=== PATIENT | female | born 1980 | race Caucasian/White ===

== ENCOUNTER → 2017-04-01 | Outpatient (CLI) | payer BC, MEDICAID ==
[~2017-04-01] MED LIST: ASCO100083 PO; CALC-464 PO; CYCL10TA9 PO; FERR325C PO; LPRM1B120; MULT-974 PO; MV-M1TAB20 PO; NAPR550T PO; OMEP20TA2 PO; OXYC1TAB87 PO; PRM25T PO; TRM50T PO; prenatal vit PO
--- NOTE | 2017-04-01 17:09 | Diagnostic Imaging Report ---
Transabdominal and transvaginal pelvic ultrasound. INDICATION: Abnormal uterine bleeding. FINDINGS: The uterus is 8.8 x 5.2 x 4.6 cm. The endometrial stripe is 0.4 cm in thickness. The left ovary is 3.6 x 2.5 x 2.7 cm. The right ovary is not seen, probably obscured by bowel gas. IMPRESSION: The right ovary is obscured. The uterus and left ovary appear unremarkable. Dictated by: Dictated on workstation # [id number]
== END ==
LOC: RAD 11:54
PROVIDERS: ATTEND Nurse Practitioner
DX: N93.8 Other specified abnormal uterine and vaginal bleeding (principal)
CPT/HCPCS: 76830; 76856

== ENCOUNTER 2017-05-27 05:38 | Outpatient (CLI) | payer BC ==
[~2017-05-27] VITALS: Ht 175.3 cm; Wt 111.1 kg
[2017-05-27] MEDS ORDERED: GABA-486 PO (13:18)
[2017-05-27] MEDS ORDERED: CHOL5000 PO (13:18)
[2017-05-27] MEDS ORDERED: CALC-823 PO (13:18)
[2017-05-27] MEDS ORDERED: TRAM50TA2 PO (13:18)
[2017-05-27] MEDS ORDERED: PREN-102 PO (13:18)
== END 2017-05-27 13:41 ==
LOC: PREOP 05:38
PROVIDERS: ATTEND Obstetrics & Gynecology
DX: Z01.818 Encounter for other preprocedural examination (principal); N92.0 Excessive and frequent menstruation with regular cycle; N93.8 Other specified abnormal uterine and vaginal bleeding; N80.0 Endometriosis of uterus

== ENCOUNTER 2017-06-02 09:12 | Day surgery (SDC) | payer BC ==
[~2017-06-02] VITALS: Ht 175.3 cm; Wt 111.1 kg
[~2017-06-02 09:12] MED LIST changes: +CALC-823 PO; +CHOL5000 PO; +GABA-486 PO; +PREN-102 PO; +TRAM50TA2 PO
[2017-06-02] MEDS: LACTATED RINGERS 1,000 ML IV PRN ×2 (09:35→12:45)
[2017-06-02 09:40] VITALS: BP 130/89
[2017-06-02] MEDS ORDERED: ONDANSETRON 4 MG/2 ML (SDV) Z0FRAN ONE (09:45)
[2017-06-02] MEDS ORDERED: FAMOTIDINE 20MG/2ML IV (PEPCID) ONE (09:45)
[2017-06-02] MEDS ORDERED: SCOPOLAMINE 1.5 MG (TRANSDERM-SCOP) PATCH ONE (09:45)
[2017-06-02] MEDS ORDERED: ceFAZolin 1,000 MG (ANCEF) VIAL ONE (09:46)
[2017-06-02] MEDS ORDERED: NS (IVPB) 50 ML ONE (09:46)
[2017-06-02] MEDS ORDERED: metroNIDAZOLE 500MG/100ML IVPB 100 ML ONE (09:46)
[2017-06-02 09:48] LABS: COLOR,URINE YELLOW; GLUCOSE, URINE (UA) NEGATIVE (NEGATIVE); KETONES,URINE NEGATIVE (NEGATIVE); LEUKOCYTE ESTERASE ,URINE 1+ (NEGATIVE); NITRITE,URINE NEGATIVE (NEGATIVE); PH,URINE 6 (5-9); PROTEIN,URINE 2+ (NEGATIVE); UROBILINOGEN,URINE 1 MG/DL (NORMAL)
[2017-06-02 09:48] LABS: BASOPHILS % (AUTO) 0 % (0-10); EOSINOPHILS # (AUTO) 0.1 10^3/uL (0.0-0.3); EOSINOPHILS % (AUTO) 2 % (0-10); HEMATOCRIT 38 % (35-52); HEMOGLOBIN 13.2 G/DL (11.5-16.0); LYMPHOCYTES # (AUTO) 1.5 X 10^3 (1.0-4.0); LYMPHOCYTES % (AUTO) 24 % (12-44); MEAN CORPUSCULAR HEMOGLOBIN 29 PG (25-34); MEAN CORPUSCULAR HGB CONC 34 G/DL (32-36); MEAN CORPUSCULAR VOLUME 84 FL (80-99); MONOCYTES # (AUTO) 0.5 X 10^3 (0.0-1.0); MONOCYTES % (AUTO) 8 % (0-12); NEUTROPHILS # (AUTO) 4.1 X 10^3 (1.8-7.8); NEUTROPHILS % (AUTO) 65 % (42-75); PLATELET COUNT 222 10^3/uL (130-400); RED BLOOD COUNT 4.59 10^6/uL (4.35-5.85); RED CELL DISTRIBUTION WIDTH 13.8 % (10.0-14.5); WHITE BLOOD COUNT 6.2 10^3/uL (4.3-11.0)
[2017-06-02] MEDS ORDERED: SCOPOLAMINE 1.5 MG (TRANSDERM-SCOP) PATCH TOP ONE (10:00)
[2017-06-02] MEDS ORDERED: ceFAZolin 1 GM/NS 50 ML IVPB IV ONE ×2 (10:00)
[2017-06-02 10:12] LABS: BACTERIA,URINE MODERATE /HPF; CLARITY,URINE SLIGHTLY CLOUDY
[2017-06-02 10:13] LABS: BILIRUBIN,URINE 1+ (NEGATIVE)
[2017-06-02] MEDS ORDERED: metroNIDAZOLE 500 MG/100 ML IVPB (PRE-MIX) IV ONE (10:15)
[2017-06-02] MEDS ORDERED: CATHETER FLUSH 10 ML SYR IV PRN (10:15)
[2017-06-02] MEDS ORDERED: BUP/EPI 0.5% 1:200,000 (SENSORCAINE) 30 ML VIAL ONE (10:46)
[2017-06-02] MEDS ORDERED: BUPIVACAINE 0.25% 30 ML (SENSORCAINE) VIAL ONE (10:46)
--- NOTE | 2017-06-02 10:46 | Progress Note-Pre Operative ---
Pre-Operative Progress Note H&P Reviewed The H&P was reviewed, patient examined and no changes noted. Date Seen by Provider: Jun 02, 2017 Time Seen by Provider: 10:50 Date H&P Reviewed: Jun 02, 2017 Time H&P Reviewed: 07:30 Pre-Operative Diagnosis: menorrhagia dysmenorrhea TARAN STORY DO Jun 02, 2017 10:46
[2017-06-02] MEDS ORDERED: FAMOTIDINE 20MG/2ML IV (PEPCID) IV ONE (11:00)
[2017-06-02] MEDS ORDERED: ceFAZolin INJECTION 1,000 MG in NS (IVPB) 50 ML IV ONE (11:00)
[2017-06-02] MEDS ORDERED: metroNIDAZOLE 500MG/100ML IVPB 100 ML IV ONE (11:00)
[2017-06-02] MEDS ORDERED: ONDANSETRON 4 MG/2 ML (SDV) Z0FRAN IV ONE (11:00)
[2017-06-02] MEDS ORDERED: DEXAMETHASONE 10 MG/ML (DECADRON) 1 ML VIAL ONE (11:02)
[2017-06-02] MEDS ORDERED: proPOfol 200 MG/20 ML (DIPRIVAN) VIAL IV ONE (11:03)
[2017-06-02] MEDS ORDERED: LIDOCAINE PF 2% 5 ML (XYLOCAINE) VIAL ONE (11:03)
[2017-06-02] MEDS ORDERED: fentaNYL INJECTION 250 MCG/5 ML AMP ONE (11:03)
[2017-06-02] MEDS ORDERED: ROCURONIUM 50 MG/5 ML (ZEMURON) VIAL IV ONE ×2 (11:03→12:37)
[2017-06-02] MEDS ORDERED: MIDAZOLAM 2 MG/2 ML (VERSED) VIAL ONE (11:03)
[2017-06-02] MEDS ORDERED: GLYCOPYRROLATE 0.2 MG/ML (ROBINUL) 2 ML VIAL ONE (13:39)
[2017-06-02] MEDS ORDERED: KETOROLAC 30 MG/ML VIAL ONE (13:39)
[2017-06-02] MEDS ORDERED: NEOSTIGMINE (BLOXIVERZ ) 1 MG/1ML 10 ML VIAL ONE (13:39)
[2017-06-02] MEDS ORDERED: SEVOFLURANE (ULTANE) 15 ML INHAL SOLN ONE (13:54)
[2017-06-02] MEDS ORDERED: fentaNYL INJECTION 100 MCG/2 ML AMP ONE (13:55)
[2017-06-02] MEDS: LACTATED RINGERS 1,000 ML IV SCH ×2 (14:00→17:38)
--- NOTE | 2017-06-02 14:12 | Operative Report ---
Operative Report Date of Procedure/Surgery Jun 02, 2017 Surgeon (s) TARAN STORY DO Sales And Catering Coordinator (s): CASSANDRA Shukla Post-Operative Diagnosis Same Procedure Performed Robotic assisted supracervical hysterectomy, bilateral salpingectomy, extensive lytsis of adhesions Description of Procedure Anesthesia Type: General Estimated blood loss (mL): minimal Specimen(s) collected/removed uterus bilateral tubes Description of the Procedure After informed consent was obtained, patient was taken into the operating room where general anesthetic was found to be adequate. She was prepped and draped in the usual sterile fashion in the dorsal lithotomy position. A Hurt catheter was placed. A speculum was placed in the vagina. The cervix was visualized and was prolapsed to the introitus. The anterior lip was grasped with a sharp toothed tenaculum. The uterus was sounded and depth was approximately 8 centimeters. I placed the Salena device. And then set the Salena to 8 cm and a 3.5 cm collar was advanced over the cervix. I inserted the Salena without difficulty, inflating the balloon and securing it around the fornix of the cervix. The collar was then secured with sutures at 12 o'clock. Attention was then turned to the patient's abdomen. A supraumbilical incision was made about 8 mm. A Veress needle was inserted and I had difficulty confirming intraabdominal placement, but was eventually able to confirm with a drop in pressure and the saline drop test. I then insufflated the abdomen to a maximum of 15 mmHg with warmed CO2 gas. I then placed an 8 mm trocar and then the Da Berry camera and intraperitoneal placement was confirmed. I then determined the procedure could be continued robotically. However, there was extensive filmy omental adhesions surrounding the umbilicus. This was obscuring the pelvis. The first robotic port was placed about 15 cm lateral to the right and left of the umbilical placement and slightly inferior. These are both 8 mm trocars. These were placed under direct visualization of the laparoscope. 0.25% Marcaine was injected prior to placement of all trocars. When all placements were confirmed, the patient was placed in steep Trendelenburg allowing adequate visualization and the robot was brought in for docking. The docking was accomplished without difficulty. A survey of the pelvis confirmed the above mentioned findings. I now took down the omental adhesions. It took over 30 minutes to take these down before I could proceed with the hysterectomy. However, they were filmy and easily taken down bluntly and with cautery. There were adhesions in the left pelvis overlying the infundibulopelvic ligament that were taken down prior to starting the hysterectomy. The omentum was also adherent to the tubes and these had to be taken down in blunt and sharp fashion with cautery. The left tube was adherent to the anterior abdominal wall and I took this down in blunt and sharp fashion. I was able to visualize the round ligaments bilaterally and grasped them and cauterized with bipolar cautery and then cut with my cecil. At this point, I then did bilateral salpingectomy. I cut along the mesosalpinx with the monopolar cecil and then dissected up to the cornu bilaterally. I then moved to the uteroovarian ligaments. I sealed the vessel and transected bilaterally using the bipolar cautery and then cut with the monopolar cecil. I then moved my dissection to the posterior leaves of the broad ligament. I dissected the posterior leaves of the broad ligament off the uterine arteries skeletonizing them bilaterally. I then took a second clamp with the bipolar cautery and with the cecil, transected the vessels away from the lateral aspect to the cervical stroma. I dissected the anterior peritoneum off the lower uterine segment. I continually pushed the bladder back and I took excessively great care and I was eventually able to dissect the vesicouterine peritoneum off the lower uterine segment. I then dissected in a V fashion towards the midline between the uterosacral ligaments. This allowed me to skeletonize the uterine vessels bilaterally. The balloon on the SALENA was insufflated. This allowed me to see the SALENA circumferentially. I then performed a colpotomy anteriorly and then amputate with cervix away from the vaginal fornix. I then continued the colpotomy circumferentially. Once this was performed, the assistant engineer removed the uterus through the vagina. A sponge was left in the vagina to maintain pneumoperitoneum. I then began closure of the vaginal cuff. The uterus was left in the vagina to maintain pneumoperitoneum. I closed the apices of the vaginal cuff with 2-0 Vicryl V lock sutures with a colposuspension through the uterosacral ligaments. This suspended the apices of the vaginal cuff. I extended this to the midline from both sides and overlapped the V lock sutures in the midline. Excellent closure is noted and hemostasis is achieved. The fascial incision at the umbilicus with 0-Vicryl in figure of eight fashion. The skin incisions were now closed with 4-0 Monocryl in subcuticular fashion. Bandages placed. Following the case, instrument counts were correct. The patient was repositioned in the supine position and awakened from general anesthesia without difficulty. She was taken to recovery in stable condition Findings of the Procedure Extensive adhesions in the anterior culdesac. The left tube was plastered to the left anterior abdomen. There was a large area of omental adhesions in the periumbilical region obscuring the visualization of the pelvis. There was also advancement of the bladder and vesicouterine peritoneum up over the lower uterine segment about assisted up the uterus. Allergies and Home Medications Allergies Coded Allergies: penicillin G (Verified Allergy, Unknown, Can take Cephalosporins, 06/02/17) Per Dr. Story patient can take Cephalosporins Home Medications Calcium Carbonate 500 Mg Tablet, 1,500 MG PO TID, (Reported) Cholecalciferol (Vitamin D3) 5,000 Unit Capsule, 5,000 UNIT PO DAILY, (Reported) Docusate Sodium 100 Mg Capsule, 100 MG PO BID PRN for CONSTIPATION-1ST LINE, #60 Prescribed by: TARAN STORY on 06/03/17 0945 Gabapentin 100 Mg Capsule, 100 MG PO DAILY, (Reported) Hydrocodone Bit/Acetaminophen 1 Ea Tablet, 1-2 EA PO Q6H PRN for PAIN-MODERATE TO SEVERE, #60 Prescribed by: TARAN STORY on 06/03/17 0945 Vits #93/Iron Fum/FA 1 Each Tablet, 1 EACH PO DAILY, (Reported) Simethicone 80 Mg Tab.chew, 40 MG PO TID PRN for INDIGESTION, #60 Prescribed by: TARAN STORY on 06/03/17 0945 Tramadol HCl 50 Mg Tablet, 50 MG PO DAILY, (Reported) TARAN STORY DO Jun 02, 2017 14:12
[2017-06-02] MEDS ORDERED: SIMETHICONE 80 MG (MYLICON) CHEW PO PRN (14:15)
[2017-06-02] MEDS ORDERED: DOCUSATE SODIUM 100 MG (COLACE) CAP PO PRN (14:15)
[2017-06-02] MEDS ORDERED: CHLORASEPTIC LOZENGE MM PRN (14:15)
[2017-06-02] MEDS ORDERED: ONDANSETRON 4 MG/2 ML (SDV) Z0FRAN IV PRN (14:15)
[2017-06-02] MEDS ORDERED: ANTACID SUSP 30 ML UDC (MYLANTA) PO PRN (14:15)
[2017-06-02] MEDS ORDERED: PROMETHAZINE INJ 25 MG/ML (PHENERGAN) AMP IVP PRN (14:30)
[2017-06-02] MEDS ORDERED: HYDROmorphone (DILAUDID) 2 MG/ML VIAL IVP PRN (14:30)
[2017-06-02] MEDS ORDERED: ONDANSETRON 4 MG/2 ML (SDV) Z0FRAN IVP PRN (14:30)
[2017-06-02] MEDS: morphine INJ 10 MG/ML 1ML (SYR OR VIAL) IVP PRN ×2 (14:36→14:41)
[2017-06-02 15:41] VITALS: BP 121/71
[2017-06-02 16:00] VITALS: BP 120/70
[2017-06-02] MEDS: HYDROmorphone (DILAUDID) 2 MG/ML VIAL IVP PRN ×2 (16:03→21:16)
[2017-06-02 16:30] VITALS: BP 115/67
[2017-06-02] MEDS: HYDROcodone/APAP 7.5 MG/325 MG (LORTAB, LORCET PLUS) TABLET PO PRN (18:01)
[2017-06-02 18:40] VITALS: BP 125/69
[2017-06-02] MEDS: KETOROLAC 30 MG/ML VIAL IV PRN (20:37)
[2017-06-02 20:39] VITALS: BP 123/77
[2017-06-03 00:05] VITALS: BP 114/71
[2017-06-03] MEDS: HYDROcodone/APAP 7.5 MG/325 MG (LORTAB, LORCET PLUS) TABLET PO PRN ×2 (00:06→08:22)
[2017-06-03] MEDS ORDERED: KETOROLAC 30 MG/ML VIAL ONE (01:55)
[2017-06-03] MEDS: KETOROLAC 30 MG/ML VIAL IV PRN (02:03)
[2017-06-03] MEDS: LACTATED RINGERS 1,000 ML IV SCH (02:03)
[2017-06-03 04:10] VITALS: BP 113/76
[2017-06-03] MEDS ORDERED: IBUPROFEN 600 MG (MOTRIN) TAB PO PRN (06:45)
[2017-06-03 07:59] VITALS: BP 102/69
--- NOTE | 2017-06-03 08:40 | Anesthesia-General Post-Op ---
General Patient Condition Mental Status/LOC: Same as Preop Cardiovascular: Satisfactory Nausea/Vomiting: Absent Respiratory: Satisfactory Pain: Controlled Complications: Absent Post Op Complications Complications None Follow Up Care/Instructions Patient Instructions None needed. Anesthesia/Patient Condition Patient Condition Patient is doing well, no complaints, stable vital signs, no apparent adverse anesthesia problems. No complications reported per nursing. D/C home per [facility] Criteria: Yes JOLANTA DOLL CRNA Jun 03, 2017 08:40
[2017-06-03] MEDS ORDERED: HYDR-34 PO (09:45)
[2017-06-03] MEDS ORDERED: DOCU100C37 PO (09:45)
[2017-06-03] MEDS ORDERED: SIME80TA16 PO (09:45)
--- NOTE | 2017-06-03 09:49 | Discharge Inst-Women's Service ---
Discharge Inst-Women's Serv Depart Medication/Instructions New, Converted or Re-Newed RX: RX on Chart Final Diagnosis menorrhagia/dysfunctional uterine bleeding adenomyosis enteropelvic adhesions Consults/Follow Up Additional Follow Up: Yes (1 week with Lakhwinder for incision check and 10-12 weeks for pelvic exam.) Activity Activity: Activity as Tolerated Driving Instructions: No Driving for 1 Week NO SMOKING: NO SMOKING Nothing Inside Vagina: No Douching, No [place] (for 10-12 weeks (until released)), No Tampons Diet Discharge Diet: No Restrictions Symptoms to Report to DrNaseem: Pain Increased, Fever Over 101 Degrees F, Vaginal Bleeding Increase, Cramps in Feet or Legs, Vaginal Discharge Foul For Any Problems or Questions: Contact Your Physician Skin/Wound Care Infection Signs and Symptoms: Increased Redness, Foul Odor of Wound, Increased Drainage, Skin Itchy or Has a Rash, Increased Swelling, Temperature Above 101 F Operative Area Clean and Dry: Keep Incision Clean/Dry Stitches/Óscar/Dermabond: Dermabond Bathing Instructions: TARAN Manuel DO Jun 03, 2017 09:49
--- OUTSIDE RECORDS SUMMARY | 2017-06-04 13:41 | XMS REPORT | Clinical Summary ---
Author Author [facility] Organization [facility] Address Unknown Phone Unavailable Care Team Providers Care Animal Care Attendant Name Role Phone Ritchie Gay PCP Eris Miller MD Unavailable Unavailable Anjana Stern RN Unavailable Unavailable Source Comments Some departments are not documenting in the electronic medical record. If you do not see the information that you expected, contact Release of Information in the Health Information Management department at [phone] for further assistance in locating additional records.[facility] Allergies Active Allergy Reactions Severity Noted Date Comments Penicillins HIVES 01/06/2013 Happened as a child Current Medications Prescription Sig. Disp. Refills Start End Date Status Date oxyCODone (ROXICODONE) 1 Take 5-15 mL by mouth 500 mL 0 03/17/20 Active mg/mL oral solution every 4 hours as needed 13 Earliest Fill Date: 03/17/[address](+) Take 1 Cap by mouth 90 Cap 3 07/01/19 Active (PRILOSEC) 40 mg daily. 14 capsuleIndications: Reflux promethazine (PHENERGAN) Take 25 mg by mouth every Active 25 mg tablet 6 hours as needed. Active Problems Problem Noted Date Unspecified protein-calorie malnutrition (HCC) 12/15/2013 S/P gastric bypass 03/21/2013 Morbid obesity (HCC) 01/12/2013 Social History Tobacco Use Types Packs/Day Years Used Date Never Smoker Smokeless Tobacco: Never Used Alcohol Use Drinks/Week oz/Week Comments No Sex Assigned at Date Recorded Not on file Last Filed Vital Signs Vital Sign Reading Time Taken Blood Pressure 122/83 11/17/2013 8:16 AM CDT Pulse 86 11/17/2013 8:16 AM CDT Temperature 36.1 C (97 F) 11/17/2013 8:16 AM CDT Respiratory Rate 16 11/17/2013 8:16 AM CDT Oxygen Saturation 96% 03/17/2013 8:08 AM MATERIAL HAULER Inhaled Oxygen - - Concentration Weight 111.3 kg (245 lb 6.4 oz) 11/17/2013 8:16 AM CDT Height 175.3 cm (5' 9") 11/17/2013 8:16 AM CDT Body Mass Index 36.24 11/17/2013 8:16 AM CDT Plan of Treatment Health Maintenance Due Date Last Done Comments PHYSICAL (COMPREHENSIVE) 11/01/1986 EXAM PERTUSSIS VACCINE 11/01/1990 TETANUS VACCINE 11/01/1996 CERVICAL CANCER SCREENING 11/01/2009 INFLUENZA VACCINE 11/18/2016 Results Not on filefrom Last 3 Months
--- OUTSIDE RECORDS SUMMARY | 2017-06-04 13:42 | XMS REPORT | Continuity of Care Document ---
Author Author [facility] Address Unknown Phone Unavailable Allergies Active Description Code Type Severity Reaction Onset Reported/Identified Relationship to Patient Clinical Status Yes Penicillins Drug Allergy 08/15/2011 Yes Penicillins Drug Allergy N/A N/A 08/15/2011 Yes amitriptyline 25 mg tablet Drug Allergy N/A N/A 10/14/2012 Medications There is no data. Problems Date Dx Coded Attending Type Code Diagnosis Diagnosed By 08/15/2011 HARMONY PEDERSON DO 277.7 DYSMETABOLIC SYNDROME X 08/15/2011 HARMONY PEDERSON DO 278.00 OBESITY UNSPECIFIED 08/15/2011 HARMONY PEDERSON DO 724.3 SCIATICA 08/15/2011 HARMONY PEDERSON DO V70.0 ROUTINE GENERAL MEDICAL EXAMINATION AT A HEALTH CARE FACILITY 08/15/2011 277.7 DYSMETABOLIC SYNDROME X 08/15/2011 278.00 OBESITY UNSPECIFIED 08/15/2011 724.3 SCIATICA 08/15/2011 V70.0 ROUTINE GENERAL MEDICAL EXAMINATION AT A HEALTH CARE FACILITY 08/15/2011 277.7 DYSMETABOLIC SYNDROME X 08/15/2011 278.00 OBESITY UNSPECIFIED 08/15/2011 724.3 SCIATICA 08/15/2011 V70.0 ROUTINE GENERAL MEDICAL EXAMINATION AT A HEALTH CARE FACILITY 08/15/2011 277.7 DYSMETABOLIC SYNDROME X 08/15/2011 278.00 OBESITY UNSPECIFIED 08/15/2011 724.3 SCIATICA 08/15/2011 V70.0 ROUTINE GENERAL MEDICAL EXAMINATION AT A HEALTH CARE FACILITY 08/15/2011 277.7 DYSMETABOLIC SYNDROME X 08/15/2011 278.00 OBESITY UNSPECIFIED 08/15/2011 724.3 SCIATICA 08/15/2011 V70.0 ROUTINE GENERAL MEDICAL EXAMINATION AT A HEALTH CARE FACILITY 08/15/2011 HARMONY PEDERSON DO 277.7 DYSMETABOLIC SYNDROME X 08/15/2011 HARMONY PEDERSON DO 278.00 OBESITY UNSPECIFIED 08/15/2011 PEDERSON DO, HARMONY K 724.3 SCIATICA 08/15/2011 PEDERSON DO, HARMONY K V70.0 ROUTINE GENERAL MEDICAL EXAMINATION AT A HEALTH CARE FACILITY 08/15/2011 [facility], NARINDER A 277.7 DYSMETABOLIC SYNDROME X 08/15/2011 [facility], NAR[facility]ER A 278.00 OBESITY UNSPECIFIED 08/15/2011 [facility], NARINDER A 724.3 SCIATICA 08/15/2011 [facility], NARINDER A V70.0 ROUTINE GENERAL MEDICAL EXAMINATION AT A HEALTH CARE FACILITY 08/15/2011 PEDERSON DO, HARMONY K 277.7 DYSMETABOLIC SYNDROME X 08/15/2011 PEDERSON DO, HARMONY K 278.00 OBESITY UNSPECIFIED 08/15/2011 PEDERSON DO, HARMONY K 724.3 SCIATICA 08/15/2011 PEDERSON DO, HARMONY K V70.0 ROUTINE GENERAL MEDICAL EXAMINATION AT A HEALTH CARE FACILITY 08/15/2011 [facility], DENYS R 277.7 DYSMETABOLIC SYNDROME X 08/15/2011 [facility], DENYS R 278.00 OBESITY UNSPECIFIED 08/15/2011 [facility], DENYS R 724.3 SCIATICA 08/15/2011 [facility], DENYS R V70.0 ROUTINE GENERAL MEDICAL EXAMINATION AT A HEALTH CARE FACILITY 08/15/2011 [facility], DENYS R 277.7 DYSMETABOLIC SYNDROME X 08/15/2011 [facility], DENYS R 278.00 OBESITY UNSPECIFIED 08/15/2011 [facility], DENYS R 724.3 SCIATICA 08/15/2011 [facility], DENYS R V70.0 ROUTINE GENERAL MEDICAL EXAMINATION AT A HEALTH CARE FACILITY 08/15/2011 PEDERSON DO, HARMONY K 277.7 DYSMETABOLIC SYNDROME X 08/15/2011 PEDERSON DO, HARMONY K 278.00 OBESITY UNSPECIFIED 08/15/2011 PEDERSON DO, HARMONY K 724.3 SCIATICA 08/15/2011 PEDERSON DO, HARMONY K V70.0 ROUTINE GENERAL MEDICAL EXAMINATION AT A HEALTH CARE FACILITY 08/15/2011 PEDERSON DO, HARMONY K 277.7 DYSMETABOLIC SYNDROME X 08/15/2011 PEDERSON DO, HARMONY K 278.00 OBESITY UNSPECIFIED 08/15/2011 PEDERSON DO, HARMONY K 724.3 SCIATICA 08/15/2011 PEDERSON DO, HARMONY K V70.0 ROUTINE GENERAL MEDICAL EXAMINATION AT A HEALTH CARE FACILITY 08/15/2011 ROSIE MOYER MD 277.7 DYSMETABOLIC SYNDROME X 08/15/2011 ROSIE MOYER MD 278.00 OBESITY UNSPECIFIED 08/15/2011 ROSIE MOYER MD 724.3 SCIATICA 08/15/2011 ROSIE MOYER MD V70.0 ROUTINE GENERAL MEDICAL EXAMINATION AT A HEALTH CARE FACILITY 08/15/2011 ROSIE MOYER MD 277.7 DYSMETABOLIC SYNDROME X 08/15/2011 ROSIE MOYER MD 278.00 OBESITY UNSPECIFIED 08/15/2011 ROSIE MOYER MD 724.3 SCIATICA 08/15/2011 ROSIE MOYER MD V70.0 ROUTINE GENERAL MEDICAL EXAMINATION AT A HEALTH CARE FACILITY 08/15/2011 BG JAMA HARMONY K 277.7 DYSMETABOLIC SYNDROME X 08/15/2011 PEDERSON DO HARMONY K 278.00 OBESITY UNSPECIFIED 08/15/2011 [place] PEDERSON DOA K 724.3 SCIATICA 08/15/2011 PEDERSON DO HARMONY K V70.0 ROUTINE GENERAL MEDICAL EXAMINATION AT A HEALTH CARE FACILITY 08/15/2011 PEDERSON DO HARMONY K 277.7 DYSMETABOLIC SYNDROME X 08/15/2011 PEDERSON DO HARMONY K 278.00 OBESITY UNSPECIFIED 08/15/2011 PEDERSON DO HARMONY K 724.3 SCIATICA 08/15/2011 PEDERSON DO HARMONY K V70.0 ROUTINE GENERAL MEDICAL EXAMINATION AT A HEALTH CARE FACILITY 08/15/2011 BG JAMA HARMONY K 277.7 DYSMETABOLIC SYNDROME X 08/15/2011 PEDERSON DO HARMONY K 278.00 OBESITY UNSPECIFIED 08/15/2011 PEDERSON DO HARMONY K 724.3 SCIATICA 08/15/2011 PEDERSON DO HARMONY K V70.0 ROUTINE GENERAL MEDICAL EXAMINATION AT A HEALTH CARE FACILITY 09/09/2011 [place] PEDERSON DOA K 724.2 LUMBAGO 09/09/2011 [place] PEDERSON DOA K 783.1 ABNORMAL WEIGHT GAIN 09/09/2011 [place] PEDERSON DOA K V25.02 GENERAL COUNSELING ON INITIATION OF OTHER CONTRACEPTIVE MEASURES 09/09/2011 724.2 LUMBAGO 09/09/2011 783.1 ABNORMAL WEIGHT GAIN 09/09/2011 V25.02 GENERAL COUNSELING ON INITIATION OF OTHER CONTRACEPTIVE MEASURES 09/09/2011 724.2 LUMBAGO 09/09/2011 783.1 ABNORMAL WEIGHT GAIN 09/09/2011 V25.02 GENERAL COUNSELING ON INITIATION OF OTHER CONTRACEPTIVE MEASURES 09/09/2011 724.2 LUMBAGO 09/09/2011 783.1 ABNORMAL WEIGHT GAIN 09/09/2011 V25.02 GENERAL COUNSELING ON INITIATION OF OTHER CONTRACEPTIVE MEASURES 09/09/2011 724.2 LUMBAGO 09/09/2011 783.1 ABNORMAL WEIGHT GAIN 09/09/2011 V25.02 GENERAL COUNSELING ON INITIATION OF OTHER CONTRACEPTIVE MEASURES 09/09/2011 PEDERSON HARMONY JAMA K 724.2 LUMBAGO 09/09/2011 PEDERSON HARMONY JAMA 783.1 ABNORMAL WEIGHT GAIN 09/09/2011 HARMONY PEDERSON DO V25.02 GENERAL COUNSELING ON INITIATION OF OTHER CONTRACEPTIVE MEASURES [facility]/09[facility]83.1 ABNORMAL WEIGHT GAIN 09/09/2011 [facility] V25.02 GENERAL COUNSELING ON INITIATION OF OTHER CONTRACEPTIVE MEASURES 09/09/2011 PEDERSON HARMONY JAMA 724.2 LUMBAGO 09/09/2011 HARMONY PEDERSON DO 783.1 ABNORMAL WEIGHT GAIN 09/09/2011 HARMONY PEDERSON DO V25.02 GENERAL COUNSELING ON INITIATION OF OTHER CONTRACEPTIVE MEASURES 09/09/2011 [facility] LUMBAGO 09/09/2011 [facility], DENYS R 783.1 ABNORMAL WEIGHT GAIN 09/09/2011 [facility] V25.02 GENERAL COUNSELING ON INITIATION OF OTHER CONTRACEPTIVE MEASURES 09/09/2011 [facility], DENYS R 724.2 LUMBAGO 09/09/2011 [facility], DENYS R 783.1 ABNORMAL WEIGHT GAIN 09/09/2011 [facility] V[facility].02 GENERAL COUNSELING ON INITIATION OF OTHER CONTRACEPTIVE MEASURES 09/09/2011 HARMONY PEDERSON DO K 724.2 LUMBAGO 09/09/2011 HARMONY PEDERSON DO K 783.1 ABNORMAL WEIGHT GAIN 09/09/2011 HARMONY PEDERSON DO K V25.02 GENERAL COUNSELING ON INITIATION OF OTHER CONTRACEPTIVE MEASURES 09/09/2011 HARMONY PEDERSON DO 724.2 LUMBAGO 09/09/2011 HARMONY PEDERSON DO 783.1 ABNORMAL WEIGHT GAIN 09/09/2011 HARMONY PEDERSON DO V25.02 GENERAL COUNSELING ON INITIATION OF OTHER CONTRACEPTIVE MEASURES 09/09/2011 ROSIE MOYER MD 724.2 LUMBAGO 09/09/2011 ROSIE MOYER MD 783.1 ABNORMAL WEIGHT GAIN 09/09/2011 ROSIE MOYER MD V25.02 GENERAL COUNSELING ON INITIATION OF OTHER CONTRACEPTIVE MEASURES 09/09/2011 ROSIE MOYER MD 724.2 LUMBAGO 09/09/2011 ROSIE MOYER MD 783.1 ABNORMAL WEIGHT GAIN 09/09/2011 ROSIE MOYER MD V25.02 GENERAL COUNSELING ON INITIATION OF OTHER CONTRACEPTIVE MEASURES 09/09/2011 HARMONY PEDERSON DO 724.2 LUMBAGO 09/09/2011 HARMONY PEDERSON DO 783.1 ABNORMAL WEIGHT GAIN 09/09/2011 HARMONY PEDERSON DO V25.02 GENERAL COUNSELING ON INITIATION OF OTHER CONTRACEPTIVE MEASURES 09/09/2011 HARMONY PEDERSON DO 724.2 LUMBAGO 09/09/2011 HARMONY PEDERSON DO K 783.1 ABNORMAL WEIGHT GAIN 09/09/2011 HARMONY PEDERSON DO V25.02 GENERAL COUNSELING ON INITIATION OF OTHER CONTRACEPTIVE MEASURES 09/09/2011 HARMONY PEDERSON DO 724.2 LUMBAGO 09/09/2011 HARMONY PEDERSON DO 783.1 ABNORMAL WEIGHT GAIN 09/09/2011 HARMONY PEDERSON DO V25.02 GENERAL COUNSELING ON INITIATION OF OTHER CONTRACEPTIVE MEASURES 11/28/2011 HARMONY PEDERSON DO 112.1 Candidiasis Vaginal 11/28/2011 HARMONY PEDERSON DO K 698.0 Pruritus Ani 11/28/2011 112.1 Candidiasis Vaginal 11/28/2011 698.0 Pruritus Ani 11/28/2011 112.1 Candidiasis Vaginal 11/28/2011 698.0 Pruritus Ani 11/28/2011 112.1 Candidiasis Vaginal 11/28/2011 698.0 Pruritus Ani 11/28/2011 112.1 Candidiasis Vaginal 11/28/2011 698.0 Pruritus Ani 11/28/2011 HARMONY PEDERSON DO K 112.1 Candidiasis Vaginal 11/28/2011 PEDERSON DO, HARMONY K 698.0 Pruritus Ani 11/28/2011 [facility], NAR[facility]ER A 112.1 Candidiasis Vaginal 11/28/2011 [facility], NAR[facility] A 698.0 Pruritus Ani 11/28/2011 PEDERSON DO, HARMONY K 112.1 Candidiasis Vaginal 11/28/2011 PEDERSON DO, HARMONY K 698.0 Pruritus Ani 11/28/2011 [facility], DENYS R 112.1 Candidiasis Vaginal 11/28/2011 [facility] DENYS R 698.0 Pruritus Ani 11/28/2011 [facility], DENYS R 112.1 Candidiasis Vaginal 11/28/2011 [facility], DENYS R 698.0 Pruritus Ani 11/28/2011 PEDERSON DO, HARMONY K 112.1 Candidiasis Vaginal 11/28/2011 PEDERSON DO, HARMONY K 698.0 Pruritus Ani 11/28/2011 PEDERSON DO, HARMONY K 112.1 Candidiasis Vaginal 11/28/2011 PEDERSON DO, HARMONY K 698.0 Pruritus Ani 11/28/2011 ROSIE MOYER MD 112.1 Candidiasis Vaginal 11/28/2011 ROSIE MOYER MD 698.0 Pruritus Ani 11/28/2011 ROSEI MOYER MD 112.1 Candidiasis Vaginal 11/28/2011 ROSIE MOYER MD 698.0 Pruritus Ani 11/28/2011 PEDERSON DO, HARMONY K 112.1 Candidiasis Vaginal 11/28/2011 PEDERSON DO, HARMONY K 698.0 Pruritus Ani 11/28/2011 PEDERSON DO, HARMONY K 112.1 Candidiasis Vaginal 11/28/2011 PEDERSON DO, HARMONY K 698.0 Pruritus Ani 11/28/2011 PEDERSON DO, HARMONY K 112.1 Candidiasis Vaginal 11/28/2011 PEDERSON DO, HARMONY K 698.0 Pruritus Ani 03/09/2012 PEDERSON DO, HARMONY K 112.3 CANDIDIASIS OF SKIN AND NAILS 03/09/2012 112.3 CANDIDIASIS OF SKIN AND NAILS 03/09/2012 112.3 CANDIDIASIS OF SKIN AND NAILS 03/09/2012 112.3 CANDIDIASIS OF SKIN AND NAILS 03/09/2012 112.3 CANDIDIASIS OF SKIN AND NAILS 03/09/2012 PEDERSON DO HARMONY K 112.3 CANDIDIASIS OF [facility]IN [facility]S [facility]09[facility] 112.3 CANDIDIASIS OF SKIN AND NAILS 03/09/2012 PEDERSON DO HARMONY K 112.3 CANDIDIASIS OF SKIN AND NAILS 03/09/2012 [facility], DENYS R 112.3 CANDIDIASIS OF SKIN AND NAILS 03/09/2012 [facility], DENYS R 112.3 CANDIDIASIS OF SKIN AND NAILS 03/09/2012 PEDERSON DO HARMONY K 112.3 CANDIDIASIS OF SKIN AND NAILS 03/09/2012 PEDERSON DO HARMONY K 112.3 CANDIDIASIS OF SKIN AND NAILS 03/09/2012 ROSIE MOYER MD 112.3 CANDIDIASIS OF SKIN AND NAILS 03/09/2012 ROSIE MOYER MD 112.3 CANDIDIASIS OF SKIN AND NAILS 03/09/2012 PEDERSON DO HARMONY K 112.3 CANDIDIASIS OF SKIN AND NAILS 03/09/2012 PEDERSON DO HARMONY K 112.3 CANDIDIASIS OF SKIN AND NAILS 03/09/2012 PEDERSON DO HARMONY K 112.3 CANDIDIASIS OF SKIN AND NAILS 05/14/2012 PEDERSON DO HARMONY K 782.3 EDEMA 05/14/2012 782.3 EDEMA 05/14/2012 782.3 EDEMA 05/14/2012 782.3 EDEMA 05/14/2012 782.3 EDEMA 05/14/2012 PEDERSON DO, HARMONY K 782.3 EDEMA 05/14/2012 [facility], NARINDER Garcia 782.3 EDEMA 05/14/2012 PEDERSON DO, HARMONY K 782.3 EDEMA 05/14/2012 [facility], [facility] R 782.3 EDEMA 05/14/2012 [facility], [facility] R 782.3 EDEMA 05/14/2012 PEDERSON DO, HARMONY K 782.3 EDEMA 05/14/2012 PEDERSON DO, HARMONY K 782.3 EDEMA 05/14/2012 ROSIE MOYER MD 782.3 EDEMA 05/14/2012 ROSIE MOYER MD 782.3 EDEMA 05/14/2012 PEDERSON DO, HARMONY K 782.3 EDEMA 05/14/2012 PEDERSON DO, HARMONY K 782.3 EDEMA 06/08/2012 682.9 CELLULITIS AND ABSCESS OF UNSPECIFIED SITES 06/08/2012 682.9 CELLULITIS AND ABSCESS OF UNSPECIFIED SITES 06/08/2012 682.9 CELLULITIS AND ABSCESS OF UNSPECIFIED SITES 06/08/2012 682.9 CELLULITIS AND ABSCESS OF UNSPECIFIED SITES 06/08/2012 [place] PEDERSON DOA K 682.9 CELLULITIS AND ABSCESS OF UNSPECIFIED SITES 06/08/2012 [facility] 682.[facility] CELLULITIS AND ABSCESS OF UNSPECIFIED SITES 06/08/2012 PEDERSON [place] JAMAA K 682.9 CELLULITIS AND ABSCESS OF UNSPECIFIED SITES 06/08/2012 [facility], DENYS R 682.9 CELLULITIS AND ABSCESS OF UNSPECIFIED SITES 06/08/2012 [facility], DEN[facility] R 682.9 CELLULITIS AND ABSCESS OF UNSPECIFIED SITES 06/08/2012 [place] PEDERSON DOA K 682.9 CELLULITIS AND ABSCESS OF UNSPECIFIED SITES 06/08/2012 [place] PEDERSON DOA K 682.9 CELLULITIS AND ABSCESS OF UNSPECIFIED SITES 06/08/2012 ROSIE MOYER MD 682.9 CELLULITIS AND ABSCESS OF UNSPECIFIED SITES 06/08/2012 ROSIE MOYER MD 682.9 CELLULITIS AND ABSCESS OF UNSPECIFIED SITES 06/08/2012 [place] PEDERSON DOA K 682.9 CELLULITIS AND ABSCESS OF UNSPECIFIED SITES 06/08/2012 [place] PEDERSON DOA K 682.9 CELLULITIS AND ABSCESS OF UNSPECIFIED SITES 07/12/2012 461.9 SINUSITIS ACUTE 07/12/2012 461.9 Sinusitis Acute 07/12/2012 461.9 Sinusitis Acute 07/12/2012 461.9 Sinusitis Acute 07/12/2012 [place] PEDERSON DOA K 461.9 Sinusitis Acute 07/12/2012 [facility] Sinusitis Acute 07/12/2012 [place] PEDERSON DOA K 461.9 Sinusitis Acute 07/12/2012 [facility], [facility] R 461.9 Sinusitis Acute 07/12/2012 [facility], [facility] R 461.9 Sinusitis Acute 07/12/2012 [place] PEDERSON DOA K 461.9 Sinusitis Acute 07/12/2012 PEDERSON [place] JAMAA K 461.9 Sinusitis Acute 07/12/2012 ROSIE MOYER MD 461.9 Sinusitis Acute 07/12/2012 ROSIE MOYER MD 461.9 Sinusitis Acute 07/12/2012 PEDERSON HARMONY JAMA K 461.9 Sinusitis Acute 07/12/2012 BG JAMA, HARMONY K 461.9 Sinusitis Acute 08/02/2012 786.2 cough 08/02/2012 786.2 cough 08/02/2012 786.2 cough 08/02/2012 PEDERSON DO, HARMONY K 786.2 COUGH 08/02/2012 [facility], NARINDER A 786.2 COUGH 08/02/2012 PEDERSON DO, HARMONY K 786.2 COUGH 08/02/2012 [facility], DENYS R 786.2 COUGH 08/02/2012 [facility], DEN[facility] R 786.2 COUGH 08/02/2012 PEDERSON DO, HARMONY K 786.2 COUGH 08/02/2012 PEDERSON DO, HARMONY K 786.2 COUGH 08/02/2012 ROSIE MOYER MD 786.2 COUGH 08/02/2012 ROSIE MOYER MD 786.2 COUGH 08/02/2012 PEDERSON DO, HARMONY K 786.2 COUGH 08/02/2012 PEDERSON DO, HARMONY K 786.2 COUGH 10/14/2012 401.1 HYPERTENSION, BENIGN ESSENTIAL 10/14/2012 V05.3 HEP B (ADULT) DX 10/14/2012 V05.4 VARICELLA DX 10/14/2012 V06.1 TDAP DX 10/14/2012 V06.4 MMR DX 10/14/2012 PEDERSON DO, HARMONY K 401.1 HYPERTENSION, BENIGN ESSENTIAL 10/14/2012 PEDERSON DO, HARMONY K V05.3 HEP B (ADULT) DX 10/14/2012 PEDERSON DO, HARMONY K V05.4 VARICELLA DX 10/14/2012 PEDERSON DO, HARMONY K V06.1 TDAP DX 10/14/2012 PEDERSON DO, HARMONY K V06.4 MMR DX 10/14/2012 [facility] 401.1 HYPERTENSION, BENIGN ESSENTIAL 10/14/2012 [facility] V05.3 HEP B (ADULT) DX 10/14/2012 [facility] V05.4 VARICELLA DX 10/14/2012 [facility] V06.1 TDAP DX 10/14/2012 [facility] V06.4 MMR DX 10/14/2012 PEDERSON DO, HARMONY K 401.1 HYPERTENSION, BENIGN ESSENTIAL 10/14/2012 PEDERSON DO, HARMONY K V05.3 HEP B (ADULT) DX 10/14/2012 PEDERSON DO, HARMONY K V05.4 VARICELLA DX 10/14/2012 PEDERSON DO, HARMONY K V06.1 TDAP DX 10/14/2012 PEDERSON DO, HARMONY K V06.4 MMR DX 10/14/2012 [facility] DEN[facility] R 401.1 HYPERTENSION, BENIGN ESSENTIAL 10/14/2012 [facility] R V05.3 HEP B (ADULT) DX 10/14/2012 [facility] DENYS R V05.4 VARICELLA DX 10/14/2012 [facility] R V06.1 TDAP DX 10/14/2012 [facility] R V06.4 MMR DX 10/14/2012 [facility] DENYS R 401.1 HYPERTENSION, BENIGN ESSENTIAL 10/14/2012 [facility] DENYS R V05.3 HEP B (ADULT) DX 10/14/2012 [facility] DENYS R V05.4 VARICELLA DX 10/14/2012 [facility] R V06.1 TDAP DX 10/14/2012 [facility] R V06.4 MMR DX 10/14/2012 PEDERSON DO, HARMONY K 401.1 HYPERTENSION, BENIGN ESSENTIAL 10/14/2012 PEDERSON DO, HARMONY K V05.3 HEP B (ADULT) DX 10/14/2012 PEDERSON DO, HARMONY K V05.4 VARICELLA DX 10/14/2012 PEDERSON DO, HARMONY K V06.1 TDAP DX 10/14/2012 PEDERSON DO, HARMONY K V06.4 MMR DX 10/14/2012 PEDERSON DO, HARMONY K 401.1 HYPERTENSION, BENIGN ESSENTIAL 10/14/2012 PEDERSON DO, HARMONY K V05.3 HEP B (ADULT) DX 10/14/2012 PEDERSON DO, HARMONY K V05.4 VARICELLA DX 10/14/2012 PEDERSON DO, HARMONY K V06.1 TDAP DX 10/14/2012 PEDERSON DO, HARMONY K V06.4 MMR DX 10/14/2012 JOÃO ZHANG, ROSIE 401.1 HYPERTENSION, BENIGN ESSENTIAL 10/14/2012 ROSIE MOYER MD V05.3 HEP B (ADULT) DX 10/14/2012 ROSIE MOYER MD V05.4 VARICELLA DX 10/14/2012 ROSIE MOYER MD V06.1 TDAP DX 10/14/2012 JOÃO ZHANG, ROSIE V06.4 MMR DX 10/14/2012 JOÃO ZHANG, ROSIE 401.1 HYPERTENSION, BENIGN ESSENTIAL 10/14/2012 ROSIE MOYER MD V05.3 HEP B (ADULT) DX 10/14/2012 JOÃO ZHANG, ROSIE V05.4 VARICELLA DX 10/14/2012 JOÃO ZHANG, ROSIE V06.1 TDAP DX 10/14/2012 ROSIE MOYER MD V06.4 MMR DX 10/14/2012 PEDERSON DO, HARMONY K 401.1 HYPERTENSION, BENIGN ESSENTIAL 10/14/2012 PEDERSON DO, HARMONY K V05.3 HEP B (ADULT) DX 10/14/2012 PEDERSON DO, HARMONY K V05.4 VARICELLA DX 10/14/2012 PEDERSON DO, HARMONY K V06.1 TDAP DX 10/14/2012 PEDERSON DO, HARMONY K V06.4 MMR DX 10/14/2012 PEDERSON DO, HARMONY K 401.1 HYPERTENSION, BENIGN ESSENTIAL 10/14/2012 PEDERSON DO, HARMONY K V05.3 HEP B (ADULT) DX 10/14/2012 PEDERSON DO, HARMONY K V05.4 VARICELLA DX 10/14/2012 PEDERSON DO, HARMONY K V06.1 TDAP DX 10/14/2012 PEDERSON DO, HAROMNY K V06.4 MMR DX 11/01/2012 HARMONY PEDERSON DO K V58.69 LONG-TERM (CURRENT) USE OF OTHER MEDICATIONS 11/01/2012 [facility] LONG-TERM (CURRENT) USE OF OTHER MEDICATIONS 11/01/2012 HARMONY PEDERSON DO V58.69 LONG-TERM (CURRENT) USE OF OTHER MEDICATIONS 11/01/2012 [facility] LONG-TERM (CURRENT) USE OF OTHER MEDICATIONS 11/01/2012 [facility] LONG-TERM (CURRENT) USE OF OTHER MEDICATIONS 11/01/2012 HARMONY PEDERSON DO V58.69 LONG-TERM (CURRENT) USE OF OTHER MEDICATIONS 11/01/2012 HARMONY PEDERSON DO V58.69 LONG-TERM (CURRENT) USE OF OTHER MEDICATIONS 11/01/2012 ROSIE MOYER MD V58.69 LONG-TERM (CURRENT) USE OF OTHER MEDICATIONS 11/01/2012 ROSIE MOYER MD V58.69 LONG-TERM (CURRENT) USE OF OTHER MEDICATIONS 11/01/2012 HARMONY PEDERSON DO V58.69 LONG-TERM (CURRENT) USE OF OTHER MEDICATIONS 11/01/2012 HARMONY PEDERSON DO V58.69 LONG-TERM (CURRENT) USE OF OTHER MEDICATIONS 01/27/2013 HARMONY PEDERSON DO V04.81 FLU SHOT 01/27/2013 [facility] Garcia V04.81 FLU SHOT 01/27/2013 HARMONY PEDERSON DO V04.81 FLU SHOT 01/27/2013 [facility], [facility] R V04.81 FLU SHOT 01/27/2013 [facility] V04.81 FLU SHOT 01/27/2013 HARMONY PEDERSON DO V04.81 FLU SHOT 01/27/2013 HARMONY PEDERSON DO V04.81 FLU SHOT 01/27/2013 ROSIE MOYER MD V04.81 FLU SHOT 01/27/2013 ROSIE MOYER MD V04.81 FLU SHOT 01/27/2013 HARMONY PEDERSON DO V04.81 FLU SHOT 01/27/2013 HARMONY PEDERSON DO V04.81 FLU SHOT 05/09/2013 [facility] Garcia 309.28 AD ADJ D/O W ANX DEP MOOD 05/09/2013 HARMONY PEDERSON DO 309.28 AD ADJ D/O W ANX DEP MOOD 05/09/2013 [facility], [facility] R 309.28 AD ADJ D/O W ANX DEP MOOD 05/09/2013 [facility], [facility] R 309.28 AD ADJ D/O W ANX DEP MOOD 05/09/2013 HARMONY PEDERSON DO 309.28 AD ADJ D/O W ANX DEP MOOD 05/09/2013 HARMONY PEDERSON DO 309.28 AD ADJ D/O W ANX DEP MOOD 05/09/2013 ROSIE MOYER MD 309.28 AD ADJ D/O W ANX DEP MOOD 05/09/2013 ROSIE MOYER MD 309.28 AD ADJ D/O W ANX DEP MOOD 05/09/2013 HARMONY PEDERSON DO 309.28 AD ADJ D/O W ANX DEP MOOD 05/09/2013 HARMONY PEDERSON DO 309.28 AD ADJ D/O W ANX DEP MOOD 05/30/2013 PEDERSON DO, HARMONY K 263.9 UNSPECIFIED PROTEIN-CALORIE MALNUTRITION 05/30/2013 [facility], DENYS R 263.9 UNSPECIFIED PROTEIN-CALORIE MALNUTRITION 05/30/2013 [facility], DENYS R 263.9 UNSPECIFIED PROTEIN-CALORIE MALNUTRITION 05/30/2013 HARMONY PEDERSON DO K 263.9 UNSPECIFIED PROTEIN-CALORIE MALNUTRITION 05/30/2013 HARMONY PEDERSON DO 263.9 UNSPECIFIED PROTEIN-CALORIE MALNUTRITION 05/30/2013 ROSIE MOYER MD 263.9 UNSPECIFIED PROTEIN-CALORIE MALNUTRITION 05/30/2013 ROSIE MOYER MD 263.9 UNSPECIFIED PROTEIN-CALORIE MALNUTRITION 05/30/2013 PEDERSON [place] JAMAA K 263.9 UNSPECIFIED PROTEIN-CALORIE MALNUTRITION 05/30/2013 PEDERSON [place] JAMAA K 263.9 UNSPECIFIED PROTEIN-CALORIE MALNUTRITION 09/14/2013 [facility], DENYS Islas V74.1 TB SCREENING 09/14/2013 HARMONY PEDERSON DO V74.1 TB SCREENING 09/14/2013 HARMONY PEDERSON DO V74.1 TB SCREENING 09/14/2013 ROSIE MOYER MD V74.1 TB SCREENING 09/14/2013 ROSIE MOYER MD V74.1 TB SCREENING 09/14/2013 PEDERSON [place] JAMAA K V74.1 TB SCREENING 09/14/2013 [place] PEDERSON DOA K V74.1 TB SCREENING 03/07/2014 [place] PEDERSON DOA K V03.89 MENINGOCOCCAL DX 03/07/2014 PEDERSON DO HARMONY K V05.3 HEP A (ADULT) DX 03/07/2014 [place] PED[place] DOA K V05.4 VARICELLA DX 03/07/2014 [place] PEDERSON DOA K V03.89 MENINGOCOCCAL DX 03/07/2014 PEDERSON DO HARMONY K V05.3 HEP A (ADULT) DX 03/07/2014 PEDERSON , HARMONY K V05.4 VARICELLA DX 06/30/2014 PEDERSON [place] JAMAA K V45.3 POSTSURGICAL INTESTINAL BYPASS OR ANASTOMOSIS STATUS Procedures Code [place] [address] OXIMETRY 08/02/2012 00207 PSYCH DIAGNOSTIC EVALUATION 05/24/2013 36010 ROUTINE VENIPUNCTURE 05/30/2013 18233 CBC 05/30/2013 1537327 GFR CALC (RESULT ONLY) 05/30/2013 21062 CMP 05/30/2013 26947 LIPID PANEL 05/30/2013 97126 LIVER PANEL (LFT) 05/30/2013 95548 IRON SERUM 05/30/2013 11050 IRON BNDNG CAP 05/30/2013 45282 PREALBUMIN 05/30/2013 48266 A1C (RML) 05/30/2013 18420 VIT B 12 05/30/2013 26393 FOLATE 05/30/2013 31599 TSH 05/30/2013 14053 VITAMIN D 25-HYDROXY (D2,D3 , TOTAL) 05/30/2013 43289 FERRITIN 05/30/2013 21583 T4 FREE 05/31/2013 [facility] IRON GROUP (Iron,TIBC, Ferritin) 06/01/2013 44094 PSYTX PT&/FAMILY 45 MINUTES 06/23/2013 84505 TB TEST INTRADERMAL 09/14/2013 12929 A1C (IN-HOUSE) 10/14/2013 81440 ROUTINE VENIPUNCTURE 10/14/2013 54394 LIPID PANEL 10/14/2013 06155 LIVER PANEL (LFT) 10/14/2013 58432 MAGNESIUM 10/14/2013 83742 T4 FREE 10/14/2013 18129 TSH 10/14/2013 86464 VITAMIN D 25-HYDROXY (D2,D3 , TOTAL) 10/14/2013 81205 VIT B 12 10/14/2013 54570 ZINC 10/17/2013 12138 COPPER 10/19/2013 33511 ROUTINE VENIPUNCTURE 11/14/2013 90834 CMP 11/14/2013 65617 FOLATE 11/14/2013 86696 PREALBUMIN 11/14/2013 04449 VITAMIN A 11/14/2013 83634 CBC 11/14/2013 [facility] IRON GROUP (Iron,TIBC, Ferritin) 11/14/2013 Results There is no data. Encounters ACCT No. Visit Date/Time Discharge Status Pt. Type Provider Facility Loc./Unit Complaint [id number] 06/30/2014 10:31:00 06/30/2014 23:59:59 CLS Outpatient HARMONY PEDERSON DO [id number] 03/07/2014 17:32:00 03/07/2014 23:59:59 CLS Outpatient HARMONY PEDERSON DO [id number] 12/15/2013 00:00:00 12/15/2013 23:59:59 CLS Outpatient JOÃO ZHANG, ROSIE [id number] 11/28/2013 13:43:00 11/28/2013 23:59:59 CLS Outpatient ROSIE MOYER MD [id number] 11/14/2013 09:02:00 11/14/2013 23:59:59 CLS Outpatient HARMONY PEDERSON DO [id number] 10/14/2013 09:39:00 10/14/2013 23:59:59 CLS Outpatient HARMONY PEDERSON DO [id number] 09/14/2013 18:43:00 09/14/2013 23:59:59 [facility] Out[facility] DENYS Islas [id number] 06/23/2013 08:00:00 06/23/2013 23:59:59 CLS Out[facility] [place]las [id number] 05/30/2013 13:01:00 05/30/2013 23:59:59 CLS Outpatient HARMONY PEDERSON DO [id number] 05/09/2013 12:55:00 05/09/2013 23:59:59 CLS Outpatient [facility] [id number] 01/27/2013 17:32:00 01/27/2013 23:59:59 CLS Outpatient HARMONY PEDERSON DO [id number] 07/12/2012 13:54:00 07/12/2012 23:59:59 CLS Outpatient [id number] 05/14/2012 16:47:00 05/14/2012 23:59:59 [place] [id number] 11/28/2011 10:31:00 11/28/2011 23:59:59 CLS Outpatient HARMONY PEDERSON DO [id number] 10/14/2012 14:22:00 Document Registration [id number] 08/16/2012 13:22:00 Document Registration [id number] 08/02/2012 14:56:00 Document Registration
== END 2017-06-03 12:15 | disposition home or self-care (01) ==
LOC: SDC 09:12 → WS 15:03 → SDC 06-03 12:15
PROVIDERS: ATTEND Obstetrics & Gynecology
DX: N92.0 Excessive and frequent menstruation with regular cycle (principal); N93.8 Other specified abnormal uterine and vaginal bleeding; N80.0 Endometriosis of uterus; N83.8 Other noninflammatory disorders of ovary, fallopian tube and broad ligament; G57.92 Unspecified mononeuropathy of left lower limb; E66.9 Obesity, unspecified; Z68.36 Body mass index [BMI] 36.0-36.9, adult; Z79.899 Other long term (current) drug therapy
CPT/HCPCS: 36415; 81000; 84703; 85025; 86850; 86900; 86901; 87081; 87088; 87186; 88307; 94664

== ENCOUNTER → 2018-02-05 | Outpatient (CLI) | payer BC ==
[~2018-02-05] MED LIST changes: +DOCU100C37 PO; +HYDR-34 PO; +SIME80TA16 PO
--- NOTE | 2018-02-05 15:32 | Diagnostic Imaging Report ---
PROCEDURE: MRI lumbar spine. TECHNIQUE: Multiplanar, multisequence MRI of the lumbar spine was performed without contrast. INDICATION: Chronic low back pain. COMPARISON: No prior studies are available for comparison. FINDINGS: Curvature of the lumbar spine is normal. There is minimal retrolisthesis of L3 on L4. Vertebral body heights are maintained. No acute compression fracture or geographic marrow lesion is seen. There is some generalized degenerative disc disease with disc space narrowing and desiccation. The conus is unremarkable at the T12-L1 level. T12-L1: Central canal is widely patent. The neural foramina are patent. Mild degenerative facet changes are seen. L1-2: There are some facet degenerative changes but central canal is widely patent. The neural foramina are widely patent. L2-3: There is some ligamentous thickening and annular bulging. Central canal remains patent but there is narrowing of the lateral recesses bilaterally. Very mild neural foraminal narrowing is seen bilaterally. L3-4: There is a wide-based midline/right paramidline disc protrusion/osteophyte complex. This produces significant narrowing of the central canal. There is significant bilateral lateral recess stenosis. There is also moderate bilateral neural foraminal stenosis. Hypertrophic facet changes and ligamentous thickening is present as well resulting in trefoil configuration of the sac. L4-5: Bulky hypertrophic facet degenerative change is seen. There is ligamentous thickening as well as broad-based disc/osteophyte complex. This results in significant trefoil central canal stenosis. There is also bilateral lateral recess stenosis. There is significant left neural foraminal stenosis with mild right neural foraminal stenosis. L5-S1: Broad-based disc/osteophyte complex indents the ventral thecal sac and results in mild central canal narrowing. There is bilateral lateral recess narrowing, right greater. The neural foramina are patent. The paraspinous tissues are unremarkable. IMPRESSION: Multilevel lumbar spondylosis and facet arthropathy resulting in multilevel central canal, lateral recess and neural foraminal stenosis described level by level above. Central canal stenosis is greatest at L3-4 and L4-5 levels, as described. No acute compression fracture is seen. Dictated by: Dictated on workstation # [id number]
== END ==
LOC: RAD 13:55
PROVIDERS: ATTEND Pain Medicine Interventional Pain Medicine
DX: M48.07 Spinal stenosis, lumbosacral region (principal); M46.86 Other specified inflammatory spondylopathies, lumbar region; M99.73 Connective tissue and disc stenosis of intervertebral foramina of lumbar region; M25.78 Osteophyte, vertebrae; M24.28 Disorder of ligament, vertebrae; M51.16 Intervertebral disc disorders with radiculopathy, lumbar region; M47.25 Other spondylosis with radiculopathy, thoracolumbar region; M43.16 Spondylolisthesis, lumbar region
CPT/HCPCS: 72148

== ENCOUNTER 2018-06-14 05:39 | Outpatient (CLI) | payer BC ==
[~2018-06-14] VITALS: Ht 175.3 cm; Wt 106.6 kg
[2018-06-14] MEDS ORDERED: ASCO-262 PO (13:58)
[2018-06-14] MEDS ORDERED: CYAN100092 IJ (13:58)
[2018-06-14] MEDS ORDERED: FERR160T5 PO (13:58)
[2018-06-14] MEDS ORDERED: BIOT800T PO (13:58)
[2018-06-14] MEDS ORDERED: CHOL10003 PO (13:58)
== END 2018-06-14 14:09 ==
LOC: PREOP 05:39
PROVIDERS: ATTEND Orthopaedic Surgery Orthopaedic Surgery of the Spine
DX: Z01.818 Encounter for other preprocedural examination (principal)

== ENCOUNTER 2018-06-21 10:58 | Inpatient (IN) | payer BC ==
[~2018-06-21] VITALS: Ht 175.3 cm; Wt 103.2 kg
[~2018-06-21 10:58] MED LIST changes: +ASCO-262 PO; +BIOT800T PO; +CHOL10003 PO; +CYAN100092 IJ; +FERR160T5 PO
--- OUTSIDE RECORDS SUMMARY | 2018-06-21 11:03 | XMS REPORT | Clinical Summary ---
Author Author [facility] Organization [facility] Address Unknown Phone Unavailable Care Team Providers Care Soda Jerker Name Role Phone Ritchie Gay PCP Eris Miller MD Unavailable Unavailable Anjana Stern RN Unavailable Unavailable Source Comments Some departments are not documenting in the electronic medical record. If you do not see the information that you expected, contact Release of Information in the Health Information Management department at [phone] for further assistance in locating additional records.[facility] Allergies Comments Active Allergy Reactions Severity Noted Date Happened as a child Penicillins HIVES 01/06/2013 Medications End Date Status Medication Sig Dispensed Refills Start Date Active oxyCODone (ROXICODONE) 1 Take 5-15 mL 500 mL 0 mg/mL oral solution by mouth 3 every 4 hours as needed Earliest Fill Date: 03/17/[address](+) Take 1 Cap by 90 Cap 3 (PRILOSEC) 40 mg mouth daily. 4 capsuleIndications: Reflux Active promethazine (PHENERGAN) Take 25 mg by 0 25 mg tablet mouth every 6 hours as needed. Active Problems Problem Noted Date Unspecified protein-calorie malnutrition 12/15/2013 S/P gastric bypass 03/21/2013 Morbid obesity 01/12/2013 Social History Date Tobacco Use Types Packs/Day Years Used Never Smoker Smokeless Tobacco: Never Used Alcohol Use Drinks/Week oz/Week Comments No Sex Assigned at Date Recorded Not on file Industry Job Start Date Occupation Not on file Not on file Not on file Travel End Travel History Travel Start No recent travel history available. Last Filed Vital Signs Time Taken Vital Sign Reading 11/17/2013 8:16 AM CDT Blood Pressure 122/83 11/17/2013 8:16 AM CDT Pulse 86 11/17/2013 8:16 AM CDT Temperature 36.1 C (97 F) 11/17/2013 8:16 AM CDT Respiratory Rate 16 03/17/2013 8:08 AM BOTTOM SPRAYER Oxygen Saturation 96% - Inhaled Oxygen - Concentration 11/17/2013 8:16 AM CDT Weight 111.3 kg (245 lb 6.4 oz) 11/17/2013 8:16 AM CDT Height 175.3 cm (5' 9") 11/17/2013 8:16 AM CDT Body Mass Index 36.24 Plan of Treatment Health Maintenance Due Date Last Done Comments PHYSICAL (COMPREHENSIVE) 11/01/1986 EXAM HIV SCREENING 11/01/1994 DTAP/TDAP VACCINES ( - 11/01/1997 Tdap) CERVICAL CANCER SCREENING 11/01/2009 INFLUENZA VACCINE 11/18/2018 Results Not on filefrom Last 3 Months Insurance Payer Benefit Subscriber ID Type Phone Address Plan / Group BCBS [employer] xxxxxxxxxxxx PPO OUT OF STATE Advance Directives Patient has advance care planning documents, and code status on file. For more information, please contact: [facility] [address] [place] [address] Date Inactivated Comments Code Status Date Activated 03/17/2013 2:03 PM Full Code 03/15/2013 8:11 PM Provider has discussed Code Status Yes w/Patient or Family?
--- OUTSIDE RECORDS SUMMARY | 2018-06-21 11:04 | XMS REPORT | Continuity of Care Document ---
Author Author [facility] Address Unknown Phone Unavailable Allergies Active Description [...] EXAMINATION AT A HEALTH CARE FACILITY 08/15/2011 [facility], [facility] A 277.7 DYSMETABOLIC SYNDROME X 08/15/2011 [facility], [facility] A 278.00 OBESITY UNSPECIFIED 08/15/2011 [facility], [facility] A 724.3 SCIATICA 08/15/2011 [facility], [facility] A V70.0 ROUTINE GENERAL MEDICAL EXAMINATION AT A HEALTH CARE FACILITY 08/15/2011 PEDERSON DO, HARMONY K 277.7 DYSMETABOLIC SYNDROME X 08/15/2011 PEDERSON DO, HARMONY K 278.00 OBESITY UNSPECIFIED 08/15/2011 PEDERSON DO, HARMONY K 724.3 SCIATICA 08/15/2011 PEDERSON DO, HARMONY K V70.0 ROUTINE GENERAL MEDICAL EXAMINATION AT A HEALTH CARE FACILITY 08/15/2011 [facility], [place] R 277.7 DYSMETABOLIC SYNDROME X 08/15/2011 [facility], [place] R 278.00 OBESITY UNSPECIFIED 08/15/2011 [facility], [place] R 724.3 SCIATICA 08/15/2011 [facility], [place] R V70.0 ROUTINE GENERAL MEDICAL EXAMINATION AT A HEALTH CARE FACILITY 08/15/2011 [facility], [place] R 277.7 DYSMETABOLIC SYNDROME X 08/15/2011 [facility], [place] R 278.00 OBESITY UNSPECIFIED 08/15/2011 [facility], [place] R 724.3 SCIATICA 08/15/2011 [facility], [place] R V70.0 ROUTINE GENERAL MEDICAL EXAMINATION [...] ON INITIATION OF OTHER CONTRACEPTIVE MEASURES [facility]09[facility]2 LUMBAGO [facility]/09[facility] 783.1 ABNORMAL WEIGHT GAIN 09/09/[facility] V25.02 GENERAL COUNSELING ON INITIATION OF OTHER CONTRACEPTIVE MEASURES 09/09/2011 PEDERSON HARMONY JAMA 724.2 LUMBAGO 09/09/2011 HARMONY PEDERSON DO 783.1 ABNORMAL WEIGHT GAIN 09/09/2011 HARMONY PEDERSON DO V25.02 GENERAL COUNSELING ON INITIATION OF OTHER CONTRACEPTIVE MEASURES 09/09/2011 [facility] 724.2 LUMBAGO 09/09/2011 [facility], [place] R 783.1 ABNORMAL WEIGHT GAIN 09/09/2011 [facility] V25.02 GENERAL COUNSELING ON INITIATION OF OTHER CONTRACEPTIVE MEASURES 09/09/2011 [facility], [place] R 724.2 LUMBAGO 09/09/2011 [facility], [place] R 783.1 ABNORMAL WEIGHT GAIN 09/09/2011 [facility] V25.02 GENERAL COUNSELING ON INITIATION OF [...] INITIATION OF OTHER CONTRACEPTIVE MEASURES 11/28/2011 HARMONY PEEDRSON DO 112.1 Candidiasis Vaginal 11/28/2011 HARMONY PEDERSON [...] ROSIE MOYER MD 698.0 Pruritus Ani 11/28/2011 ROSIE MOYER MD 112.1 Candidiasis Vaginal 11/28/2011 ROSIE MOYER MD 698.0 Pruritus Ani 11/28/2011 PEDERSON DO, HARMONY K 112.1 Candidiasis Vaginal 11/28/2011 [facility] DO, HARMONY K 698.0 Pruritus Ani 11/28/2011 [...] 112.3 CANDIDIASIS OF SKIN AND NAILS 03/09/2012 [facility] 112.3 CANDIDIASIS OF SKIN AND NAILS 03/09/2012 PEDERSON DO HARMONY K 112.3 CANDIDIASIS OF SKIN AND NAILS 03/09/2012 [facility], DEN[place] R 112.3 CANDIDIASIS OF SKIN AND NAILS 03/09/2012 [facility], [place] R 112.3 CANDIDIASIS OF SKIN AND [...] PEDERSON DO, HARMONY K 782.3 EDEMA 05/14/2012 [facility], N[facility] Garcia 782.3 EDEMA 05/14/2012 PEDERSON DO, HARMONY K 782.3 EDEMA 05/14/2012 [facility], [place] R 782.3 EDEMA 05/14/2012 [facility], [place] R 782.3 EDEMA 05/14/2012 PEDERSON DO, [...] CELLULITIS AND ABSCESS OF UNSPECIFIED SITES 06/08/2012 [facility] 682.9 CELLULITIS AND ABSCESS OF UNSPECIFIED SITES 06/08/2012 PEDERSON [place] JAMAA K 682.9 CELLULITIS AND ABSCESS OF UNSPECIFIED SITES 06/08/2012 [facility], [place] R 682.9 CELLULITIS AND ABSCESS OF UNSPECIFIED SITES 06/08/2012 [facility], [place] R 682.9 CELLULITIS AND ABSCESS OF [...] DOA K 461.9 Sinusitis Acute 07/12/2012 [facility] Sinusitis Acute 07/12/2012 [place] PEDERSON DOA K 461.9 Sinusitis Acute 07/12/2012 [facility], [place] R 461.9 Sinusitis Acute 07/12/2012 [facility], [place] R 461.9 Sinusitis Acute 07/12/2012 [place] [...] PEDERSON DO, HARMONY K 786.2 COUGH 08/02/2012 [facility] A 786.2 COUGH 08/02/2012 PEDERSON DO, HARMONY K 786.2 COUGH 08/02/2012 [facility], [place] R 786.2 COUGH 08/02/2012 [facility], [place] R 786.2 COUGH 08/02/2012 PEDERSON DO, [...] DO, HARMONY K V06.4 MMR DX 10/14/2012 [facility] 401.1 HYPERTENSION, BENIGN ESSENTIAL 10/14/2012 [facility] V05.3 HEP B (ADULT) DX 10/14/2012 [facility] V05.4 VARICELLA DX 10/14/2012 [facility] V06.1 TDAP DX 10/14/2012 [facility] V06.4 MMR DX 10/14/2012 PEDERSON [...] PEDERSON DO, HARMONY K V06.4 MMR DX 11/01/2012 HARMONY PEDERSON DO K V58.69 LONG-TERM (CURRENT) USE OF OTHER MEDICATIONS 11/01/2012 [facility] V58.69 LONG-TERM (CURRENT) USE OF OTHER MEDICATIONS 11/01/2012 HARMONY PEDERSON DO V58.69 LONG-TERM (CURRENT) USE OF OTHER MEDICATIONS 11/01/2012 [facility] V58.69 LONG-TERM (CURRENT) USE OF OTHER MEDICATIONS 11/01/2012 [facility] V58.69 LONG-TERM (CURRENT) USE OF OTHER MEDICATIONS [...] HARMONY PEDERSON DO V04.81 FLU SHOT 01/27/2013 [facility] Garcia V04.81 FLU SHOT 01/27/2013 HARMONY PEDERSON DO V04.81 FLU SHOT 01/27/2013 [facility], [place] R V04.81 FLU SHOT 01/27/2013 [facility], [place] R V04.81 FLU SHOT 01/27/2013 HARMONY PEDERSON DO V04.81 FLU SHOT 01/27/2013 HARMONY PEDERSON DO V04.81 FLU SHOT 01/27/2013 ROSIE MOYER MD V04.81 FLU SHOT 01/27/2013 ROSIE MOYER MD V04.81 FLU SHOT 01/27/2013 HARMONY PEDERSON DO V04.81 FLU SHOT 01/27/2013 HARMONY PEDERSON DO V04.81 FLU SHOT 05/09/2013 [facility] Garcia 309.28 AD ADJ D/O W ANX DEP MOOD 05/09/2013 HARMONY PEDERSON DO 309.28 AD ADJ D/O W ANX DEP MOOD 05/09/2013 [facility], [place] R 309.28 AD ADJ D/O W ANX DEP MOOD 05/09/2013 [facility], [place] R 309.28 AD ADJ D/O W [...] HARMONY K 263.9 UNSPECIFIED PROTEIN-CALORIE MALNUTRITION 05/30/2013 [facility], [place] R 263.9 UNSPECIFIED PROTEIN-CALORIE MALNUTRITION 05/30/2013 [facility], [place] R 263.9 UNSPECIFIED PROTEIN-CALORIE MALNUTRITION 05/30/2013 HARMONY PEDERSON DO K 263.9 UNSPECIFIED PROTEIN-CALORIE MALNUTRITION 05/30/2013 HARMONY PEDERSON DO 263.9 UNSPECIFIED PROTEIN-CALORIE MALNUTRITION 05/30/2013 ROSIE MOYER MD 263.9 UNSPECIFIED PROTEIN-CALORIE MALNUTRITION 05/30/2013 ROSIE MOYER MD 263.9 UNSPECIFIED PROTEIN-CALORIE MALNUTRITION 05/30/2013 PEDERSON [place] JAMAA K 263.9 UNSPECIFIED PROTEIN-CALORIE MALNUTRITION 05/30/2013 PEDERSON [place] JAMAA K 263.9 UNSPECIFIED PROTEIN-CALORIE MALNUTRITION 09/14/2013 [facility], [place] Islas V74.1 TB SCREENING 09/14/2013 HARMONY [...] Procedures Code Description [place] [address] OXIMETRY 08/02/2012 23575 PSYCH DIAGNOSTIC EVALUATION 05/24/2013 87474 ROUTINE VENIPUNCTURE 05/30/2013 74801 CBC 05/30/2013 [id number] GFR CALC (RESULT ONLY) 05/30/2013 85861 CMP 05/30/2013 32368 LIPID PANEL 05/30/2013 82303 LIVER PANEL (LFT) 05/30/2013 35236 IRON SERUM 05/30/2013 08892 IRON BNDNG CAP 05/30/2013 24111 PREALBUMIN 05/30/2013 88262 A1C (RML) 05/30/2013 09433 VIT B 12 05/30/2013 39712 FOLATE 05/30/2013 17641 TSH 05/30/2013 90625 VITAMIN D 25-HYDROXY (D2,D3 , TOTAL) 05/30/2013 95879 FERRITIN 05/30/2013 12344 T4 FREE 05/31/2013 [facility] IRON GROUP (Iron,TIBC, Ferritin) 06/01/2013 13949 PSYTX PT&/FAMILY 45 MINUTES 06/23/2013 45569 TB TEST INTRADERMAL 09/14/2013 29113 A1C (IN-HOUSE) 10/14/2013 67736 ROUTINE VENIPUNCTURE 10/14/2013 09242 LIPID PANEL 10/14/2013 24843 LIVER PANEL (LFT) 10/14/2013 37873 MAGNESIUM 10/14/2013 70161 T4 FREE 10/14/2013 49563 TSH 10/14/2013 08729 VITAMIN D 25-HYDROXY (D2,D3 , TOTAL) 10/14/2013 39675 VIT B 12 10/14/2013 89289 ZINC 10/17/2013 31554 COPPER 10/19/2013 12407 ROUTINE VENIPUNCTURE 11/14/2013 68949 CMP 11/14/2013 14560 FOLATE 11/14/2013 17922 PREALBUMIN 11/14/2013 59670 VITAMIN A 11/14/2013 80498 CBC 11/14/2013 IR[facility] IRON GROUP (Iron,TIBC, Ferritin) 11/14/2013 Results There is no data. Encounters ACCT No. Visit Date/Time Discharge Status Pt. Type Provider Facility Loc./Unit Complaint [id number] 06/30/2014 10:31:00 06/30/2014 23:59:59 CLS Outpatient HARMONY PEDERSON DO [id number] 03/07/2014 17:32:00 03/07/2014 23:59:59 CLS Outpatient HARMONY PEDERSON DO [id number] 12/15/2013 00:00:00 12/15/2013 23:59:59 CLS Outpatient JOÃO ZHANG, ROSIE [id number] 11/28/2013 13:43:00 11/28/2013 23:59:59 CLS Outpatient ROSIE MOYER MD [id number] 11/14/2013 09:02:00 11/14/2013 23:59:59 CLS Outpatient HARMONY PEDERSON DO [id number] 10/14/2013 09:39:00 10/14/2013 23:59:59 CLS Outpatient HARMONY PEDERSON DO [id number] 09/14/2013 18:43:00 09/14/2013 23:59:59 CLS Outpatient [facility], DENYS Islas [id number] 06/23/2013 08:00:00 06/23/2013 23:59:59 CLS Outpatient [facility], [place] Islas [id number] 05/30/2013 13:01:00 05/30/2013 23:59:59 CLS Outpatient HARMONY PEDERSON DO [id number] 05/09/2013 12:55:00 05/09/2013 23:59:59 CLS Outpatient [facility] [id number] 01/27/2013 17:32:00 01/27/2013 23:59:59 CLS Outpatient HARMONY PEDERSON DO [id number] 07/12/2012 13:54:00 07/12/2012 23:59:59 CLS Outpatient [id number] 05/14/2012 16:47:00 05/14/2012 23:59:59 [place] [id number] 11/28/2011 10:31:00 11/28/2011 23:59:59 CLS Outpatient HARMONY PEDERSON DO [id number] 10/14/2012 14:22:00 Document Registration [id number] 08/16/2012 13:22:00 Document Registration [id number] 08/02/2012 14:56:00 Document Registration
[2018-06-21] MEDS ORDERED: CLINDAMYCIN 600 MG/50 ML IVPB 50 ML IV ONE (11:15)
[2018-06-21] MEDS: LACTATED RINGERS 1,000 ML IV PRN ×2 (11:33→18:30)
[2018-06-21 11:50] VITALS: BP 132/94
[2018-06-21] MEDS ORDERED: DIPH25CA79 PO (12:15)
[2018-06-21] MEDS ORDERED: [UNRECOGNIZED DRUG - CODE] PO (12:15)
[2018-06-21] MEDS ORDERED: FLUT9.9S NS (12:15)
[2018-06-21] MEDS ORDERED: ONDANSETRON 4 MG/2 ML (SDV) Z0FRAN ONE ×2 (15:48→19:35)
[2018-06-21] MEDS ORDERED: proPOfol 200 MG/20 ML (DIPRIVAN) VIAL IV ONE (15:48)
[2018-06-21] MEDS ORDERED: DEXMEDETOMIDINE 200 MCG/2 ML (PRECEDEX) VIAL IV ONE (15:48)
[2018-06-21] MEDS ORDERED: SEVOFLURANE (ULTANE) 15 ML INHAL SOLN ONE ×5 (15:48→18:05)
[2018-06-21] MEDS ORDERED: DEXAMETHASONE 10 MG/ML (DECADRON) 1 ML VIAL ONE (15:48)
[2018-06-21] MEDS ORDERED: LIDOCAINE PF 2% 5 ML (XYLOCAINE) VIAL ONE (15:48)
[2018-06-21] MEDS ORDERED: fentaNYL INJECTION 100 MCG/2 ML AMP ONE (15:49)
[2018-06-21] MEDS ORDERED: MIDAZOLAM 2 MG/2 ML (VERSED) VIAL ONE (15:50)
[2018-06-21] MEDS ORDERED: NS (IVPB) 100 ML ONE (16:02)
[2018-06-21] MEDS ORDERED: WATER (STERILE) FOR INJECTION 20 ML ONE (16:17)
[2018-06-21] MEDS ORDERED: GENTAMICIN 40 MG/ML 2 ML INJ SDV ONE (16:23)
[2018-06-21] MEDS ORDERED: ACETAMINOPHEN 325 MG TABLET PO PRN (16:45)
[2018-06-21] MEDS ORDERED: MILK OF MAGNESIA 400 MG/5 ML 30 ML UDC PO PRN (16:45)
[2018-06-21] MEDS ORDERED: ONDANSETRON 4 MG/2 ML (SDV) Z0FRAN IV PRN (16:45)
--- NOTE | 2018-06-21 17:59 | Progress Note-Post Operative ---
Post-Operative Progess Note Surgeon (s)/Wigs Salesperson (s) Surgeon NEO WHITT MD Wigs Salesperson: SILVA Hong Pre-Operative Diagnosis Stenosis, Lumbar Post-Operative Diagnosis Same Procedure & Operative Findings Date of Procedure 06/21/18 Procedure Performed/Findings L3-S1 Laminectomy and Right L3-4 discectomy Anesthesia Type GETA Estimated Blood Loss Estimated blood loss (mL): Minimal Specimens/Packing Specimens Removed None NEO WHITT MD Jun 21, 2018 17:59
[2018-06-21] MEDS ORDERED: ONDANSETRON 4 MG/2 ML (SDV) Z0FRAN IVP PRN (18:30)
[2018-06-21] MEDS ORDERED: morphine INJ 10 MG/ML 1ML (SYR OR VIAL) IVP ONE (18:30)
[2018-06-21] MEDS ORDERED: PROMETHAZINE INJ 25 MG/ML (PHENERGAN) AMP IVP ONE (18:30)
[2018-06-21] MEDS ORDERED: HYDROmorphone 2 MG/ML VIAL (DILAUDID) IV ONE (18:30)
[2018-06-21] MEDS ORDERED: MEPERIDINE (DEMEROL) INJ 50 MG/ML IVP ONE (18:30)
--- NOTE | 2018-06-21 19:28 | Diagnostic Imaging Report ---
INDICATION: Laminectomy. FINDINGS: A 7 seconds of fluoro time utilized during spinal instrumentation and localization. A grade 1 anterolisthesis of L4 on L5 noted with a hooked instrument projecting over the L4-L5 facet articulation. IMPRESSION: Spondylolisthesis with 3.7 seconds of fluoro time utilized during lumbar surgery. Dictated by: Dictated on workstation # [id number]
[2018-06-21] MEDS ORDERED: HYDROmorphone 2 MG/ML VIAL (DILAUDID) ONE (19:34)
[2018-06-21] MEDS ORDERED: morphine INJ 10 MG/ML 1ML (SYR OR VIAL) ONE ×2 (19:34→20:50)
[2018-06-21] MEDS: morphine INJ 10 MG/ML 1ML (SYR OR VIAL) IVP PRN ×2 (20:54→23:26)
[2018-06-21] MEDS ORDERED: PROMETHAZINE INJ 25 MG/ML (PHENERGAN) AMP ONE (21:06)
[2018-06-21] MEDS ORDERED: NS IV 1000 ML 1,000 ML ONE (21:06)
[2018-06-21] MEDS ORDERED: PROMETHAZINE INJ 25 MG/ML (PHENERGAN) AMP IVP PRN (21:15)
[2018-06-21] MEDS: NS IV 1000 ML 1,000 ML IV SCH (21:17)
[2018-06-21] MEDS: DOCUSATE SODIUM 100 MG (COLACE) CAP PO SCH (21:25)
[2018-06-21] MEDS: CLINDAMYCIN 900 MG/50 ML IVPB 50 ML IV SCH (23:01)
[2018-06-22] VITALS: BP 99/65
[2018-06-22] MEDS: morphine INJ 10 MG/ML 1ML (SYR OR VIAL) IVP PRN ×3 (01:52→06:15)
[2018-06-22] MEDS: HYDROcodone/APAP 5 MG/325 MG (LORTAB) TAB PO PRN ×4 (01:58→15:00)
[2018-06-22 04:41] VITALS: BP 109/64
[2018-06-22] MEDS: NS IV 1000 ML 1,000 ML IV SCH ×2 (04:45→13:00)
--- NOTE | 2018-06-22 05:27 | OPERATIVE REPORT ---
DATE OF SERVICE: 06/21/2018 PREOPERATIVE DIAGNOSIS: Lumbar stenosis, neural canal due to disk and osseous structures and neurogenic claudication. POSTOPERATIVE DIAGNOSIS: Lumbar stenosis, neural canal due to disk and osseous structures and neurogenic claudication as well as lumbar disk herniation. PROCEDURES PERFORMED: 1. L3-L4 laminectomy, bilateral medial facetectomy, foraminotomy and right-sided diskectomy. 2. L4-L5 laminectomy, bilateral medial facetectomy, foraminotomy. 3. L5-S1 laminectomy, bilateral medial facetectomy, foraminotomy. DATE AND TIME OF SURGERY: Please see anesthesia record. SURGEON: Renzo Whitt MD. WASH HELPER: GEOVANY Hong. ROLE OF REAL ESTATE SALES SUPERVISOR: Aid in retraction of the procedure, aid in decompression and wound closure. ANESTHESIA: General endotracheal. ESTIMATED BLOOD LOSS: Minimal. INTRAVENOUS FLUIDS: Please see anesthesia record. ANTIBIOTICS: Ancef. COMPLICATIONS: None. INDICATIONS FOR PROCEDURE: The patient is a 37-year-old female with progressively intolerable back and lower extremity pain, high grade stenosis, failed conservative therapy, desires operative treatment. NEUROMONITORING: Neuromonitoring was carried out by means of real time continuous high quality bidirectional mode, audio and visual communication to both the technician semiconductor development and surgeon by Dr. Rod. SSEPS, EMGs, TcMEPs, TOFs were carried out continuously throughout the procedure stable. DESCRIPTION OF PROCEDURE: The patient was taken to the preoperative holding area and brought back to the operative suite. After adequate induction of general anesthetic, preoperative antibiotics, turned prone on Lionel table, careful padding to all extremities, sterilely prepped and draped the posterior lumbar spine to check a midline incision made from L3-S1. Dissection was carried down to the level of lamina. Once the appropriate levels were confirmed with fluoroscopic imaging and once the appropriate levels were confirmed, a partial 3, complete 4, complete 5 and partial S1 laminectomy, bilateral medial facetectomy and foraminotomy was carried out. Full and adequate decompression was assured. Disk was inspected and due to the large bulbous nature of disk herniation on the right side L3 and L4, diskectomy was achieved. Multiple fragments of disk material helped further aid in decompression. Once no other free fragments were seen and the decompression was assured, FloSeal and bipolar cautery were used to aid hemostasis. Wound was copiously irrigated, closed over a drain and the patient transferred to recovery room in stable condition having tolerated the procedure well. Job ID: [id number] DocumentID: [id number] Dictated Date: 06/21/2018 18:01:37 Rfid Specialist Date: 06/22/2018 05:27:00 Dictated By: RENZO WHITT MD
[2018-06-22] MEDS: CLINDAMYCIN 900 MG/50 ML IVPB 50 ML IV SCH (06:08)
--- NOTE | 2018-06-22 06:35 | Progress Note (SOAP) ---
Subjective Date Seen by a Provider: Jun 22, 2018 Time Seen by a Provider: 06:34 Subjective/Events-last exam Pain ok, already up and walking, No complaints. Objective Exam Vital Signs Date Time Temp Pulse Resp B/P (MAP) Pulse Ox O2 Delivery O2 Flow Rate FiO2 06/22/18 04:41 97.5 79 16 109/64 (79) 99 Room Air 06/22/18 00:00 97.6 60 16 99/65 (76) 99 Room Air 06/21/18 21:00 99 Nasal Cannula 1.50 06/21/18 11:50 98.0 69 18 132/94 98 Room Air 06/21/18 11:46 Room Air I & O 06/22/18 07:00 Intake Total 1888 ml Output Total 1325 ml Balance 563 ml Capillary Refill : General Appearance: No Apparent Distress Neck: Non Tender, Supple Respiratory: No Accessory Muscle Use, No Respiratory Distress Cardiovascular: Regular Rate, Rhythm, Normal Peripheral Pulses Gastrointestinal: soft Extremity: No Calf Tenderness Neurologic/Psychiatric: Alert, Oriented x3, No Motor/Sensory Deficits Assessment/Plan Assessment/Plan Assess & Plan/Chief Complaint Lumbar Stenosis, Neuro Claudication Plan: Up with PT, D/C Drain after lunch and D/C Home Instructions Given Clinical Quality Measures DVT/VTE Risk/Contraindication: Risk Factor Score Per Nursin RFS Level Per Nursing on Admit: 1=Low/No VTE PPX NEO WHITT MD Jun 22, 2018 06:35
[2018-06-22] MEDS ORDERED: ACHD5005 PO (06:37)
[2018-06-22] MEDS ORDERED: MULTIVIT W/MINERALS TAB (THERAGRAN M) PO SCH (07:00)
[2018-06-22 07:24] VITALS: BP 111/61
[2018-06-22] MEDS: CYCLOBENZAPRINE 10 MG (FLEXERIL) TAB PO PRN ×2 (08:56→15:00)
[2018-06-22] MEDS: DOCUSATE SODIUM 100 MG (COLACE) CAP PO SCH (08:57)
--- NOTE | 2018-06-22 09:30 | Physical Therapy Evaluation ---
PT Evaluation-General Medical Diagnosis Admission Date Jun 21, 2018 at 10:58 Medical Diagnosis: L3-S1 Laminectomy Onset Date: Jun 21, 2018 Therapy Diagnosis Therapy Diagnosis: decreased mobility Height/Weight Height (Feet): 5 Height (Inches): 9.00 Weight (Pounds): 227 Weight (Ounces): 8.0 Precautions Precautions/Isolations: Fall Prevention, Standard Precautions Weight Bear Status Right Lower Extremity: Right Weight Bearing/Tolerated Left Lower Extremity: Left Weight Bearing/Tolerated Referral Physician: Jass Bautista Reason for Referral: Evaluation/Treatment Medical History Additional Medical History Radiculopathy, Stenosis Current History L3-SI Laminectomy Reviewed History: Yes Social History Home: Single Level Current Living Status: Spouse Entry Into Home: Stairs Without Railing PT Steps Into Home: 2 Prior/Core FIM Prior Level of Function Therapy Code Descriptions/Definitions Functional [place] Measure: 0=Not Assessed/NA 4=Minimal Assistance 1=Total Assistance 5=Supervision or Setup 2=Maximal Assistance 6=Modified [place] 3=Moderate Assistance 7=Complete [place] Therapy Quality Codes: 6 Independent with activity with or without an assistive device 5 Patient requires set up or clean up by helper. Patient completes activity by themselves 4 Supervision or touching assist (CGA). [place] provide cues , steadying assist 3 The helper provides less than half the effort to complete the activity 2 The helper provides more than half the effort to complete the activity 1 Dependent. The helper does all the effort to complete an activity 7 Patient refused to complete or attempt activity 9 The patient did not perform the activity before the current illness or injury 88 Not attempted due to Medical conditions or safety concerns Functional Abilities and Goals: Independent: Patient completed the activities by him/herself, with or without an assistive device, with no assistance from a helper. Needed Some Help: Patient needed partial assistance from another person to complete activities. Dependent: A helper completed the activities for the patient. Unknown: Not Applicable: Bed Mobility: 7 Transfers (B,C,W/C) (FIM): 7 Gait: 7 Stairs: 7 Indoor Mobility (Ambulation): Independent Stairs: Independent Prior Devices Use: None PT Evaluation-Current Subjective Pt EOB and agrees to PT. Pt reports that she will be dismissed this afternoon. Pain Numeric Pain Scale: 7 Location Body Site: Back Pt/Family Goals Pt to return home Objective Patient Orientation: Person, Place, Situation, Normal For Age ROM/Strength ROM Lower Extremities NT Strength Lower Extremities NT Integumentary/Posture Bowel Incontinence: No Bladder Incontinence: No Neuromuscular (Tone, Coordination, Reflexes) NT Sensory Vision: Functional Hearing: Functional Sensation Lower Extremities Pt reports she still has some numbness in LLE, but it is already much improved since prior to surgery. Transfers Therapy Code Descriptions/Definitions Functional [place] Measure: 0=Not Assessed/NA 4=Minimal Assistance 1=Total Assistance 5=Supervision or Setup 2=Maximal Assistance 6=Modified [place] 3=Moderate Assistance 7=Complete [place] Transfers (B, C, W/C) (FIM): 6 Scootin Sit to/from Stand: 6 Gait Mode of Locomotion: Walk Anticipated Mode of Locomotion: Walk Gait (FIM): 7 Distance (FIM): 3=150 ft Distance: 1200' Gait Level of Assist: 7 Gait Persons Needed: 1 Gait Assistive Device: None Comments/Gait Description Toe Out gait Stairs Stairs (FIM): 2 #of Steps: 2 Level of Assist: 4 Step to pattern, no use of rails Balance Sitting Static: Good Sitting Dynamic: Good Standing Static: Good Standing Dynamic: Good Assessment/Needs Pt was able to perform bed mobility and transfers mod I, likes to help pt. Pt performed bathroom skills mod I. Pt was able to don back brace indep. Pt amb with no AD 1200' indep, SPT gave pt education on continuing to walk, take it at her own pace, and moving will help with pain. Pt was able to perform 2 steps x2 ascending and descending with CGA for safety. Pt reports she feels comfortable with steps after practice. Pt returned to room and transferred to recliner. Pt has all needs met and in room. PT will d/c pt from services , and SPT instructed pt to continue to get up and walk ad jay and can go with her. Rehab Potential: Good PT Plan Problem List Problem List: Activity Tolerance Treatment/Plan Treatment Plan: Discontinue PT Treatment Plan: Other Treatment Duration: Jun 22, 2018 Frequency: Estimated Hrs Per Day: Other Patient and/or Family Agrees t: Yes Safety Risks/Education Patient Education: Gait Training, Transfer Techniques, Steps, Correct Positioning, Safety Issues Teaching Recipient: Patient, Family Teaching Methods: Demonstration, Discussion Discharge Recommendations Therapy D/C Recommendations: Home w/ Family Support Time/GCodes Time In: 810 Time Out: 833 Total Billed Treatment Time: 23 Total Billed Treatment 1 visit EVL 10 min GT 13 min ANTONELLA NORWOOD PT Jun 22, 2018 09:30
[2018-06-22 12:00] VITALS: BP 110/59
--- NOTE | 2018-06-22 13:55 | Anesthesia-General Post-Op ---
General Patient Condition Mental Status/LOC: Same as Preop Cardiovascular: Satisfactory Nausea/Vomiting: Absent Respiratory: Satisfactory Pain: Controlled Complications: Absent Post Op Complications Complications None Follow Up Care/Instructions Patient Instructions None needed. Anesthesia/Patient Condition Patient Condition Patient was seen this morning in post-op rounds and she was doing well, no complaints, stable vital signs, no apparent adverse anesthesia problems. ELEAZAR PARKER DO Jun 22, 2018 13:55
== END 2018-06-22 16:10 | disposition home or self-care (01) | DRG 520 ==
LOC: 4TH 10:58 → SURG 10:59 → EDSTATUS 15:30 → 4TH 19:20
PROVIDERS: ADMIT Orthopaedic Surgery Orthopaedic Surgery of the Spine; ATTEND Orthopaedic Surgery Orthopaedic Surgery of the Spine
PROC: 01NB0ZZ Release Lumbar Nerve, Open Approach (ICD-10-PCS; 2018-06-21)
PROC: 0SB20ZZ Excision of Lumbar Vertebral Disc, Open Approach (ICD-10-PCS; principal; 2018-06-21 16:33)
DX: M48.062 Spinal stenosis, lumbar region with neurogenic claudication (principal); M51.16 Intervertebral disc disorders with radiculopathy, lumbar region; M43.16 Spondylolisthesis, lumbar region; M51.17 Intervertebral disc disorders with radiculopathy, lumbosacral region; M48.07 Spinal stenosis, lumbosacral region; D64.9 Anemia, unspecified
CPT/HCPCS: 87081; 94664

== ENCOUNTER → 2020-07-02 | Outpatient (CLI) | payer BC, OTHER ==
[~2020-07-02] MED LIST changes: +ACHD5005 PO; +DIPH25CA79 PO; +FLUT9.9S NS; -TRAM50TA2 PO; +[UNRECOGNIZED DRUG - CODE] PO
--- NOTE | 2020-07-02 16:01 | Diagnostic Imaging Report ---
EXAMINATION: MRI of the right shoulder without contrast from 07/02/2020. TECHNIQUE: Multiplanar, multisequence non contrast-enhanced MRI of the right upper extremity was accomplished. INDICATION: Right shoulder pain. No known injuries. FINDINGS: The subscapularis tendon contains abnormal signal intensity within its intrasubstance, predominantly involving its cranial-most fibers, likely a small intrasubstance partial tear. No full-thickness tear or discontinuity appreciated. The long head of the biceps tendon lies in the bicipital groove and is intact. There is mild heterogeneous T2 hyperintensity throughout the supraspinatus tendon, likely due to tendinosis. No discrete tear is seen. The infraspinatus tendon is unremarkable. There is minimal edema within the subdeltoid subacromial bursa which could be due to mild bursitis. The biceps tendon anchor appears intact. The labrum is grossly intact on this noncontrast examination. Muscle volume appears preserved. The visualized axilla is unremarkable. No acute osseous abnormalities appreciated. IMPRESSION: 1. Partial intrasubstance tear of the subscapularis tendon. Remaining rotator cuff appears intact. 2. Suspected mild bursitis along the subdeltoid subacromial bursa. Dictated by: Dictated on workstation # [id number]
--- NOTE | 2020-07-02 17:06 | Diagnostic Imaging Report ---
PROCEDURE: MRI lumbar spine. TECHNIQUE: Multiplanar, multisequence MRI of the lumbar spine was performed without contrast. INDICATION: History of lumbar spine surgery. Chronic low back pain. COMPARISON: MRI lumbar spine without contrast 02/05/2018. FINDINGS: There are 5 lumbar-type vertebral bodies. Grade 1 retrolisthesis of L2 on L3 and anterolisthesis of L4 on L5 is stable. Vertebral body heights are preserved. Postoperative findings of laminectomies L4-S1. No fluid collections in the postoperative soft tissues. Visualized pelvis is intact. Paravertebral soft tissues are unremarkable. No abnormal signal in the conus which terminates at L1. Normal morphology of the cauda equina. L1-L2: Mild facet arthropathy. No spinal canal, lateral recess or neural foraminal narrowing. L2-L3: Annular disc bulge, ligamentous hypertrophy and facet arthropathy all result in moderate spinal canal stenosis. Moderate bilateral neural foraminal narrowing. L3-L4: Spinal canal is decompressed well. Disc space height loss and facet arthropathy results in severe bilateral neural foraminal narrowing. L4-L5: Spinal canal is decompressed well. [id number] bilateral neural foraminal narrowing due to the anterolisthesis and facet arthropathy. L5-S1: Spinal canal is decompressed well. Small central disc protrusion. Moderate bilateral neural foraminal narrowing. IMPRESSION: 1. Postoperative findings and laminectomies L4-S1. Spinal canal is decompressed well at these levels. 2. Spondylotic changes result in multilevel high-grade neural foraminal narrowing detailed above level by level. 3. New moderate spinal canal stenosis at L2-L3. No other spinal canal stenosis. Dictated by: Dictated on workstation # [id number]
== END ==
LOC: RAD 13:15
PROVIDERS: ATTEND Physician Assistant
DX: S46.011A Strain of muscle(s) and tendon(s) of the rotator cuff of right shoulder, initial encounter (principal); M47.816 Spondylosis without myelopathy or radiculopathy, lumbar region; M51.36 Other intervertebral disc degeneration, lumbar region; M51.26 Other intervertebral disc displacement, lumbar region; M51.27 Other intervertebral disc displacement, lumbosacral region; M48.061 Spinal stenosis, lumbar region without neurogenic claudication; M48.07 Spinal stenosis, lumbosacral region; M43.16 Spondylolisthesis, lumbar region; M24.28 Disorder of ligament, vertebrae; X58.XXXA Exposure to other specified factors, initial encounter
CPT/HCPCS: 72148; 73221

== ENCOUNTER → 2021-10-15 | Outpatient (CLI) | payer OTHER ==
--- NOTE | 2021-10-15 09:31 | Diagnostic Imaging Report ---
INDICATION: Workup for bariatric surgical procedure COMPARISON: None FINDINGS: AP Spine L1-L4: [BMD (g/cm2): 1.370] [T-Score: 1.4] [Z-Score: 0.3] [BMD Previous: NA] [BMD % Change: NA] LT Hip Neck: [BMD (g/cm2): 1.164] [T-Score: 0.9] [Z-Score: 0.6] LT Hip Total: [BMD (g/cm2):1.207] [T-Score:1.6] [Z-Score: 1.0] [BMD Previous: NA] [BMD % Change: NA] RT Hip Neck: [BMD (g/cm2):1.140] [T-Score:0.7] [Z-Score:0.5] RT Hip Total: [BMD (g/cm2):1.180] [T-score:1.4] [Z-Score:0.8] [BMD Previous:NA] [BMD % Change:NA] *Indicates significant change from prior examination based on 95% confidence level. World Health Organization criteria for BMD interpretation classify patients as Normal (T-score at or above -1.0), Osteopenic (T-score between -1.0 and -2.5) or Osteoporotic (T-score at or below -2.5). LIMITATIONS AND MODIFICATION: None. FRACTURE RISK (FRAX SCORE): The ten year probability of (%): Major Osteoporotic Fracture: [NA] Hip Fracture: [NA] IMPRESSION: 1. Normal bone mineral density. 2. Baseline examination. 3. See below National Osteoporosis Foundation guidelines on when to potentially initiate pharmacologic therapy. Based on the National Osteoporosis Foundation Guidelines, pharmacologic treatment should be initiated in any of the following, unless clinical conditions suggest otherwise: * Any patient with prior fragility fracture of the hip or vertebrae. A spine fracture indicates 5X risk for subsequent spine fracture and 2X risk for subsequent hip fracture. * Osteoporosis (T-score <-2.5). * Postmenopausal women and men age 50 and older with low bone mass/osteopenia (T-score between -1.0 and -2.5) by DXA and 10-year major osteoporotic fracture greater than 20% or a 10-year probability of hip fracture greater than 3%. These fracture risks are supplied above in the FRAX score, if applicable. * Clinician judgement and/or patient preferences may indicate treatment for people with 10-year fracture probabilities above or below these levels. Dictated by: Dictated on workstation # [id number]
== END ==
LOC: RAD 09:00
PROVIDERS: ATTEND Obstetrics & Gynecology
DX: Z98.84 Bariatric surgery status (principal)
CPT/HCPCS: 77080